=== PATIENT | female | born 1960 | race Caucasian/White ===

== ENCOUNTER 2022-11-17 10:48 | Emergency (ER) | payer BC ==
--- OUTSIDE RECORDS SUMMARY | 2022-11-17 10:51 | XMS REPORT | Clinical Summary ---
:1960 Author Organization [facility] MD [facility] Address [address] [place] [address] Care Team Providers Name Role Phone Tish Welsh MD Primary Care Provider Nasir Downs MD Unavailable Tish Welsh MD Unavailable Jasen Chaudhry MD Unavailable Unavailable Tangela Francois Unavailable Lon Roque MD Unavailable Helder Segura Unavailable Sid Ace MD Unavailable Jenni Shirley MD Unavailable Allergies Active Allergy Reactions Severity Noted Date Comments Sulfamethoxazole 07/19/2015 Medications Medication Sig Dispensed Refills Start Date End Date Status aspirin 81 mg chewable Chew 81 mg at 0 Active tablet bedtime. LAMOTRIGINE (LAMICTAL Take 400 mg by 0 Active ORAL) mouth at bedtime. polyethylene glycol Take 1 packet by 0 Active (MIRALAX) 17 g packet mouth as needed. MULTIVITAMIN ORAL Take 1 tablet by 0 Active mouth at bedtime. topiramate (TOPAMAX) Take 100 mg by 0 Active 100 mg tablet mouth 3 (three) times a day. simvastatin (ZOCOR) 20 Take 20 mg by 0 Active mg tablet mouth at bedtime. OLANZAPINE (ZYPREXA Take by mouth 0 Active ORAL) daily. FERROUS SULFATE ORAL Take 65 mg by 0 Active mouth daily. potassium gluconate 550 Take 550 mg by 0 Active mg (90 mg) tab mouth daily. cholecalciferol, Take 2,000 Units 0 Active vitamin D3, (VITAMIN by mouth daily. D3) 2,000 units tab tablet ascorbic acid, vitamin Take 100 mg by 0 Active C, (vitamin C) 100 mg mouth daily. tablet b complex vitamins Take 1 tablet by 0 Active tablet mouth daily. glucosam/msm/chond/bosw Take 1 tablet by 0 Active /hyalur mouth twice (HXER-RDH-BXVM-HANNAH-HYAL daily. ORAL) pregabalin (LYRICA) 25 Take 25 mg by 0 Active mg capsule mouth daily. tiZANidine (ZANAFLEX) 2 Take 2 mg by 0 Active MG capsule mouth 3 (three) times a day as needed for muscle spasms. Active Problems Problem Noted Date Non-small cell lung cancer 02/02/2016 Medical History Medical History Date Comments Cancer Chronic constipation Social History Tobacco Use Types Packs/Day Years Used Date Smoking Tobacco: Never Assessed Sex Assigned at Date Recorded Not on file Obstetrics History Last Filed Vital Signs Not on file Plan of Treatment Health Maintenance Due Date Last Done Comments COVID-19 Vaccination (#1) 1960 Results Not on fileafter 11/17/2021 Insurance Payer Benefit Plan / Subscriber ID Effective Dates Phone Addre ss Type Group [facility] PPO POS [id number] 2016-Present [address] [place] [address] Care Teams Distance Learning Program Coordinator Relationship Specialty Start Date End Date Tish Welsh MD PCP - General 08/03/[address] [place] [id number] Nasir Downs MD Physician 08/10/[address] [place] [id number] Tish Welsh MD Physician 08/10/[address] [place] [phone] Jasen Chaudhry MD Physician 08/10/15 Tangela Francois PA Physician Event Marketing Specialist 08/10/[address] [place] [phone] Lon Roque MD Physician 08/10/[address] [place] [phone] Helder Segura, PA Physician Event Marketing Specialist 08/10/15 [address] [place] [address] Sid Ace MD Physician 08/10/[address] [place] [id number] Jenni Shirley MD Physician 08/10/[address] [place] [id number]
--- OUTSIDE RECORDS SUMMARY | 2022-11-17 10:52 | XMS REPORT | Continuity of Care Document ---
:1960 Author Organization [facility] t Address [address] [place] [address] Care Team Providers Name Role Phone ESTELLA DENG Primary Care Physician Unavailable Mele Attending Clinician Unavailable Dae Gutiérrez S Attending Clinician [phone] Dae Gutiérrez Attending Clinician Unavailable ERI WILKINSON Attending Clinician Unavailable BROOK ALVA Attending Clinician Unavailable EMILIO SMITH Attending Clinician Unavailable ESTELA AGUILA Attending Clinician Unavailable MD SOBEIDA NIETO Attending Clinician Unavailable Mele Admitting Clinician Unavailable Dae Gutiérrez Admitting Clinician Unavailable UNDEFINED Admitting Clinician Unavailable SOBEIDA NIETO Admitting Clinician Unavailable MD SOBEIDA NIETO Admitting Clinician Unavailable Payers Payer Name Policy Type Policy Number Effective Date Expiration Date S [place] [id number] 2021 00:00:00 [place] Problems Condition Condition Condition Status Onset Resolution Last Treating Co mments Source Name Details Category Date Date Treatment Clinician Date Patient Patient Problem Active Sarah noncomplia Noncomplia 8 Or thope nce - nce - 00:00: dic general General 00 Sports Medicin e Loosening Loosening Problem Active Sonja arora of of 12-20 Orthope prosthesis Prosthesis 00:00: di c 00 Sports Medicin e Impaired Impaired Disease Active Metho di ambulation ambulation 11-11 00:00: Hospita 00 l Hypokalemi Hypokalemi Disease Active M ethodi a a 11-10 00:00: Hospita 00 l Fall Fall Disease Active Methodi 11-07 00:00: Hospita 00 l Closed Closed Disease Active Overview: Method i trimalleol trimalleol 11-[address] ar ar 00:00: g of this Hospita fracture fracture 00 note l of right of right might be ankle ankle different from the original. Added automatic ally from request for surgery [id number] History of History of Problem Active A cate operative Operative 12-03 Orth ope procedure Procedure 00:00: dic on on Sports shoulder Shoulder Medici n e Implantati Implantati Problem Active A cate on of on of 09-03 Orthope joint Joint 00:00: dic prosthesis Prosthesis 00 Sp orts Medicin e Sprain of Sprain of Problem Active 2017-06 Aza maite shoulder Shoulder 2-18 Orthop e rotator Rotator 00:00: dic cuff Cuff 00 Sports Medicin e Degenerati Degenerati Problem Active 2017-06 A cate ve joint ve Joint 2-05 Orthop e disease of Disease of 00:00: di c shoulder Shoulder 00 Sports region Region Medicin e 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 00:00: dic of bone of Bone 00 Sports Medicin e Strain of Strain of Problem Active Aza maite trapezius Trapezius 02-13 Orth ope muscle Muscle 00:00: dic 00 Sports Medicin e Bursitis Bursitis Problem Active Azale a of right of Right 02-13 Orthop e shoulder Shoulder 00:00: dic 00 Sports Medicin e Adhesive Adhesive Problem Active Azale a capsulitis Capsulitis 02-06 Or thope of of 00:00: dic shoulder Shoulder 00 Sports Medicin e Sprain of Sprain of Problem Active Sonja arora right Right 02-06 Orthope rotator Rotator 00:00: dic cuff Cuff 00 Sports capsule Capsule Medicin e Aftercare Aftercare Problem Active Sonja arora 4-19 Orthope 00:00: dic 00 Sports Medicin e Hypokalemi Hypokalemi Problem Active Jagdish saavedra 3-29 Orthope 00:00: dic 00 Sports Medicin e Thyroid Thyroid Problem Active Sarah nodule Nodule 3-02 Orthope 00:00: dic 00 Sports Medicin e Hyperchole Hyperchole Problem Active Jagdish esposito sterolemia sterolemia 3-02 Or thope 00:00: dic 00 Sports Medicin e Bipolar Bipolar Problem Active Sarah disorder Disorder 3-02 Orthop e 00:00: dic 00 Sports Medicin e Mixed Mixed Problem Active Sarah anxiety Anxiety 3-02 Orthope and and 00:00: dic depressive Depressive 00 Sp orts disorder Disorder Medici n e Nonunion Nonunion Problem Active Sonjabecca saavedra of of 3- Orthope fracture Fracture 00:00: dic 00 Sports Medicin e Osteopenia Osteopenia Problem Active Jagdish lopeza 3- Orthope 00:00: dic 00 Sports Medicin e Fracture Fracture Problem Active Sonjabecca saavedra of neck of of Neck of 3- Or thope humerus Humerus 00:00: dic 00 Sports Medicin e Postmenopa Postmenopa Problem Active Jagdish esposito usal state usal State 3- Or thope 00:00: dic 00 Sports Medicin e Pain of Pain of Problem Active Sarah right Right 3 Orthope shoulder Shoulder 00:00: dic joint Joint 00 Sports Medicin e Closed Closed Disease Active 2015-06 Methodi fracture fracture 06-23 st of of 00:00: Hospita proximal proximal 00 l end of end of right 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 Non-small Non-small Disease Active Uni vers cell lung cell lung 02-01 ity of cancer cancer 00:00: [place] 00 MD [facility] Osteoarthr Osteoarthr Problem Active Jagdish garciamaite itis of itis of 1-23 Orthope knee Knee 00:00: dic 00 Sports Medicin e Synovitis Synovitis Problem Active Aza maite and/or And/or 06-25 Orthope tenosynovi Tenosynovi 00:00: di c tis - tis - Sports ankle Ankle Medicin and/or And/or e foot Foot Foot pain Foot Pain Problem Active Aza maite 06-25 Orthope 00:00: dic 00 Sports Medicin e Anemia Anemia Problem Active Sarah 06-24 Orthope 00:00: dic 00 Sports Medicin e Allergies, Adverse Reactions, Alerts Allergy Allergy Status Severity Reaction(s) Onset Inactive Treating Comm ents Source Name Type Date Date Clinician Sulfa DA Active [place] [facility] (Sulfona 7-20 Clear mide 00:00: [facility] Antibiot 00 [facility] Sulfa DA Active MO HIV [facility] (Sulfona 7-20 Clear mide 00:00: [place] Antibiot 00 Regiona ics) [facility] Center Codeine Propensi Active Rash Methodi ty to [address] adverse 00:00: Hospita reaction 00 l s to drug Sulfa DA Active MO 2017-06 [facility] (Sulfona 2-05 [place] mide 00:00: Orthope Antibiot 00 dic ics) Hospita l Sulfa DA Active MO 2017-06 [facility] (Sulfona 2-05 Clear mide 00:00: [place] Antibiot 00 Regiona ics) [facility] Center Sulfa DA Active MO 2017-06 [facility] (Sulfona 1-30 [place] mide 00:00: Orthope Antibiot 00 dic ics) Hospita l Sulfa DA Active MO [facility] (Sulfona 9-13 [place] mide 00:00: Orthope Antibiot 00 dic ics) Hospita l Sulfa Propensi Active 2015-06 Methodi (Sulfona ty to 06-23 st mide adverse 00:00: Hospita Antibiot reaction 00 l ics) s to drug Sulfamet Propensi Active Univer s hoxazole ty to 2-16 ity of adverse 00:00: [place] reaction 00 MD [facility] SULFA Allergy Active Sarah (SULFONA to 06-24 Orthope MIDE substanc 00:00: dic ANTIBIOT e 00 Sports ICS) Medicin e Family History Family Member Diagnosis Comments Start Date Stop Date Source Natural father Cancer [facility] Natural mother Diabetes [facility] Natural mother Heart disease [facility] Social History Social Habit Start Date Stop Date Quantity Comments Source Gender identity [facility] Sexual orientation [facility] History of tobacco Current smoker [facility] use Hospital History of Social 2022-08-08 2022-08-[address] function 00:00:00 00:00:00 Hospital Alcohol intake 2020-04-26 2020-04-26 Current [facility] 00:00:00 00:00:00 non-drinker of Hospital alcohol (finding) Tobacco use and 2019-11-17 2019-11-17 Smokeless Catholic exposure 00:00:00 00:00:00 tobacco non-user Hospital Sex Assigned At [birth year] [facility] 00:[facility] 00[facility]00[facility]00 [facility] Smoking Status Start Date Stop Date Source Former Smoker Sarah Orthopedi c Sports Medicine Medications Ordered Filled Start Stop Current Ordering Indication Dosage Frequency Signature Comments Components Source Medication Medication Date Date Medication? Clinician (SIG) Name Name Zofran 4 mg Zofran 4 mg No Zofran 4 Sarah tablet Take tablet Take 7-20 mg tablet Orthope 1 tablet by 1 tablet by 00:00: Take 1 dic mouth every mouth every 00 tablet by Sports four hours four hours mouth Me dicin as needed as needed every four e NAUSEA NAUSEA hours as needed NAUSEA acetaminoph acetaminoph No acetaminop Sarah en 300 en 300 - hen 300 Orthope mg-codeine mg-codeine 00:00: mg-codeine dic 30 mg 30 mg 00 30 mg Sports tablet Take tablet Take tablet Medicin 1 tablet by 1 tablet by Take 1 e mouth every mouth every tablet by eight hours eight hours mouth as needed as needed every for pain for pain eight hours as needed for pain methocarbam methocarbam No methocarba Sarah ol 500 mg ol 500 mg 7-02 mol 500 mg Orthope tablet Take tablet Take 00:00: tablet dic 1 tablet by 1 tablet by 00 Take 1 Sports mouth every mouth every tablet by Medicin eight hours eight hours mouth e as needed as needed every for pain for pain eight hours as needed for pain nebivoloL 2019-06 Yes 5mg QD Take 5 mg Met hodi (BYSTOLIC) 1-[address] 5 MG tablet 07:53: daily. Hosp lisa 38 l amLODIPine- 2019- Yes 1{capsu QD Take 1 M ethodi benazepriL 1-24 le} capsule by st (LOTREL 07:53: mouth Hospita 5-10) 5-10 38 daily. l mg per capsule lurasidone 2019-06 Yes 20mg QD Take 20 mg M ethodi (LATUDA) 20 1-[address] mg tablet 07:53: every Hospita 38 evening. l lamoTRIgine 2019-06 Yes 400mg QD Take 400 M ethodi (LaMICtal 1-[address] XR) 300 mg 07:53: mouth Hospit a tablet 38 daily. l extended release 24hr topiramate 2019-06 Yes 100mg QD Take 100 Me thodi (TOPAMAX) 1-[address] 100 MG 07:53: mouth Hospita tablet 38 daily. l simvastatin 2019-06 Yes 20mg QD Take 20 mg Methodi (ZOCOR) 20 1-[address] mg tablet 07:53: nightly. Hosp lisa 38 l furosemide 2019-06 Yes 20mg QD Take 20 mg M ethodi (LASIX) 20 1-[address] mg tablet 07:53: daily. Hospit a 38 l chlordiazeP 2019-06 Yes 10mg Q.5D Take 10 mg Methodi OXIDE 1-[address] (LIBRIUM) 07:53: (two) Hospita 10 MG 38 times a l capsule day as needed for anxiety. tiZANidine 2019-06 Yes 4mg Q8H Take 4 mg Me thodi (ZANAFLEX) 1-[address] 4 MG tablet 07:53: every 8 Hos amy 38 (eight) l hours as needed for muscle spasms. DULoxetine 2019-06 Yes 120mg QD Take 120 Me thodi (CYMBALTA) 1-[address] 60 MG 07:53: mouth Hospita capsule 38 daily. l ferrous 2019-06 Yes 1{tbl} QD Take 1 Method i fumarate-vi 1-[address] tamin C 07:53: mouth Hospita (DAMIEN-SEQU 38 daily. l ELS, IRON-VIT C,) 200 mg (65 mg iron)-25 mg tablet extended release ER tablet cholecalcif 2019-06 Yes 2000U QD Take 2,000 Methodi montrell, 1-[address] vitamin D3, 07:53: mouth Hospi ta 50 mcg 38 daily. l (2,000 unit) capsule capsule aspirin 2019-06 Yes 81mg QD Take 81 mg Meth maria luisa (ECOTRIN) 1-[address] 81 MG 07:53: daily. Hospita enteric 38 l coated tablet B 2019-06 Yes 1{tbl} QD Take 1 Methodi complex-vit 1-[address] milligan 07:53: mouth Hospita C-folic 38 daily. l acid (FOLBEE PLUS 5 MG) 5 mg tablet per tablet omega-3 2019-06 Yes 1g Q.5D Take 1 g Method i acid ethyl 1-[address] esters 07:53: (two) Hospita (LOVAZA) 1 38 times a l gram day. capsule meloxicam meloxicam 2018-06 No meloxicam Sarah 7.5 mg 7.5 mg 1-05 7.5 mg Orthope tablet TAKE tablet TAKE 00:00: tablet dic 1 TABLET BY 1 TABLET BY 00 TAKE 1 Sports MOUTH EVERY MOUTH EVERY TABLET BY Medicin DAY DAY MOUTH e NEEDED NEEDED EVERY DAY NEEDED tiZANidine Yes 2mg Take 2 mg Un raegan (ZANAFLEX) 9-26 by mouth 3 ity of 2 MG 15:38: (three) [place] capsule 06 times a MD day as Anderso needed for n muscle Cancer spasms. [place] topiramate Yes 100mg Take 100 Un raegan (TOPAMAX) 9-26 mg by ity of 100 mg 15:19: mouth 3 [place] tablet 07 (three) MD times a Anderso day. n [facility] simvastatin Yes 20mg Take 20 mg Univers (ZOCOR) 20 9-26 by mouth ity o f mg tablet 15:19: at [place] [address] bedtime. MD [facility] OLANZAPINE Yes Take by [facility] ers (ZYPREXA 9-26 mouth ity of ORAL) 15:19: daily. MD [facility] FERROUS Yes 65mg Take 65 mg Univ ers SULFATE 9-26 by mouth ity of ORAL 15:19: daily. MD [facility] potassium Yes 550mg Take 550 Uni vers gluconate 9-26 mg by ity of 550 mg (90 15:19: mouth [place] mg) tab 07 daily. MD [facility] cholecalcif Yes 2000U Take 2,000 Univers montrell, 9-26 Units by ity of vitamin D3, 15:19: mouth [place] (VITAMIN 07 daily. D3) 2,000 Anderso units tab n tablet Cancer [place] ascorbic Yes 100mg Take 100 Univ ers acid, 9-26 mg by ity of vitamin C, 15:19: mouth [place] (vitamin C) 07 daily. 100 mg Anderso tablet n [facility] b complex Yes 1{tbl} Take 1 Univ ers vitamins 9-26 tablet by ity of tablet 15:19: mouth [place] 07 daily. MD [facility] glucosam/ms Yes 1{tbl} Take 1 Un raegan m/russell/deanna 9-26 tablet by ity of w/hyalur 15:19: mouth (GLUC-MSM-C 07 twice MD BRODY-HYA daily. Brigido o L ORAL) n [facility] aspirin 81 Yes 81mg Chew 81 mg U nivers mg chewable 9-26 at ity of tablet 15:19: bedtime. MD [facility] LAMOTRIGINE Yes 400mg Take 400 U nivers (LAMICTAL 9-26 mg by ity of ORAL) 15:19: mouth at [place] [address] bedtime. MD [facility] polyethylen Yes 1{packe Take 1 U nivers e glycol 9-26 t} packet by ity of (MIRALAX) 15:19: mouth [place] 17 g packet 07 needed. MD [facility] MULTIVITAMI Yes 1{tbl} Take 1 Un raegan N ORAL 9-26 tablet by ity of 15:19: mouth at [place] [address] bedtime. MD [facility] pregabalin Yes 25mg Take 25 mg U nivers (LYRICA) 25 9-26 by mouth ity of mg capsule 15:19: daily. MD [facility] prednisone prednisone No prednisone Sarah 10 mg 10 mg 4-18 10 mg Orthope tablet DAY tablet DAY 00:00: tablet DAY dic 1: TAKE 6 1: TAKE 6 00 1: TAKE 6 Sports PILLS, DAY PILLS, DAY PILLS, DAY Medicin 2: 5 PILLS, 2: 5 PILLS, 2: 5 e DAY 3: 4 DAY 3: 4 PILLS, DAY PILLS, DAY PILLS, DAY 3: 4 4: 2 PILLS, 4: 2 PILLS, PILLS, DAY DAY 5: 1 DAY 5: 1 4: 2 PILL DAILY PILL DAILY PILLS, DAY take at take at 5: 1 PILL same time same time DAILY take each day each day at same with food with food time each day with food aspirin 81 aspirin 81 No aspirin 81 Sarah mg mg 3-02 mg Orthope tablet,navjot tablet,navjot 00:00: tablet,del dic yed release yed release 00 ayed S ports 1 tablet a 1 tablet a release 1 day tablet a e day Lamictal Lamictal No Lamictal A zalea 200 mg 200 mg 3-02 200 mg Orthope tablet 1 tablet 1 00:00: tablet 1 d ic tablet a tablet a 00 tablet a Spo Medicin e Librium Librium No Librium Azal ea 25mg once a 25mg once a 3-02 25mg once Orthope day day 00:00: a day dic 00 Sports Medicin e multivitami multivitami No multivitam Sarah n chewable n chewable 3 in [place] hope tablet 1 tablet 1 00:00: chewable d ic tablet a tablet a 00 tablet 1 Spo tablet a in e pravastatin pravastatin No pravastati Sarah 80 mg 80 mg 3-02 n 80 mg Orthope tablet 1 tablet 1 00:00: tablet 1 d ic tablet a tablet a 00 tablet a Spo day Medicin e Super Super No Super Sarah B-Complex B-Complex 3-02 B-Complex Orthope tablet 1 tablet 1 00:00: tablet 1 d ic tablet a tablet a 00 tablet a Spo day Medicin e Topamax 100 Topamax 100 No Topamax Sarah mg tablet 1 mg tablet 1 3-02 100 mg Orthope tablet tablet 00:00: tablet 1 dic twice a day twice a day 00 tablet Sports twice a Medicin day e Zyprexa 5 Zyprexa 5 No Zyprexa 5 Sarah mg tablet 1 mg tablet 1 3-02 mg tablet Orthope tablet a tablet a 00:00: 1 tablet a dic day day 00 day Sports Medicin e Mobic 15 mg Mobic 15 mg No Mobic 15 Sarah tablet 1 PO tablet 1 PO 1-23 mg tablet Orthope QD WITH QD WITH 00:00: 1 PO QD dic FOOD FOOD 00 WITH FOOD Sports Medicin e amoxicillin amoxicillin No 4capsul amoxicilli Sarah 500 mg 500 mg e(s) n 500 mg Orthope capsule capsule capsule dic Take 4 Take 4 Take 4 Sports capsules by capsules by capsules Medicin oral route oral route by oral e as as route as directed. directed. directed. amoxicillin amoxicillin No amoxicilli Sarah 500 mg 500 mg n 500 mg Orthope tablet 4 tablet 4 tablet 4 dic pills 1 hr pills 1 hr pills 1 hr Sports prior to prior to prior to Med icin procedure, procedure, procedure, e then 1 po then 1 po then 1 po Q6H X 3 Q6H X 3 Q6H X 3 DOSES DOSES DOSES Immunizations Ordered Immunization Filled Immunization Date Status Commen ts Source Name Name [employer] COVID-19 MRNA 2021-03-24 Completed Meth odist VACCINATION 00:00:00 [facility] PFIZER COVID-19 MRNA 2020-09-28 Completed Meth odist VACCINATION 00:00:00 [facility] PFIZER COVID-19 MRNA 2020-09-07 Completed Meth odist VACCINATION 00:00:00 Hospital Vital Signs Vital Name Observation Time Observation Value Comments Source Height 2021-12-21 00:00:00 61 [in_i] Sarah O rthopedic Sports Medicine BMI (Body Mass 2021-12-21 00:00:00 26.5 kg/m2 Sarah Orthopedic Index) Sports Medicine Body Weight 2021-12-21 00:00:00 140 [lb_av] Sarah [facility]opedic Sports Medicine Procedures Procedure Date / Time Performed Performing Clinician Sourc e XR, shoulder, 2 or 2021-12-21 00:00:00 Sarah Or thopedic more view Sports Medicine Plan of Care Planned Activity Planned Date Details Comments Source Future Scheduled 2022-11-16 [facility] 15:40:37 malignant neoplasm of colon (procedure) [code = 145779712] Future Scheduled 2022-11-16 Screening for [facility] Test 15:40:37 malignant neoplasm of colon (procedure) [code = 785921413] Future Scheduled 2022-11-16 Screening for [facility] Test 15:40:37 malignant neoplasm of colon (procedure) [code = 299043889] Future Scheduled 2022-11-[address] [facility] Test 15:40:37 (procedure) [code = 720499348] Future Scheduled 2022-11-16 Screening for [facility] Test 15:40:37 malignant neoplasm of cervix (procedure) [code = 580748748] Future Scheduled 2022-11-16 BREAST CANCER [facility] Test 15:40:37 SCREENING [code = BREAST CANCER SCREENING] Future Scheduled 2022-11-16 Screening for [facility] Test 15:40:37 malignant neoplasm of colon (procedure) [code = 185368935] Future Scheduled 2022-11-16 Screening for [facility] Test 15:40:37 malignant neoplasm of colon (procedure) [code = 836685400] Future Scheduled 2022-11-16 SHINGLES VACCINES (1 Met [facility] Test 15:40:37 of 2) [code = SHINGLES VACCINES (1 of 2)] Future Scheduled 2022-11-16 COVID-19 VACCINE (4 - [facility] Test 15:40:37 Pfizer series) [code = COVID-19 VACCINE (4 - Pfizer series)] Future Scheduled 2022-11-16 INFLUENZA VACCINE Method [facility] Test 15:40:37 [code = INFLUENZA VACCINE] Future Scheduled 2022-09-11 COVID-19 Vaccination Uni [facility] Test 16:03:30 (#1) [code = COVID-19 MD And ersmalcolm Cancer Vaccination (#1)] Center Encounters Start End Encounter Admission Attending Care Care Encounter Source Date/Time Date/Time Type Type Clinicians Facility Department ID 2021-12-21 2021-12-21 Outpatient FOG_Brown_B AO AO [id number] Sarah 09:29:00 09:29:00 Crystal [id number] Orth ope dic Sports Medicin e 2021-12-21 2021-12-21 Dae Gavin AO [place] - Ortho 721 Sarah 00:00:00 00:00:00 MD Brock: Emily Parks - Orthope [address] FOG_Ofc dic [facility] [place], [place] [address] , Ph. [phone] 2021-12-21 2021-12-21 Outpatient Brock, AOSM AOSM [id number] 00:00:00 00:00:00 Dae Gavin [id number] [id number] 2021-09-21 Outpatient FOG_Brown_B AOSM AOSM [id number] Sarah 11:23:00 11:23:00 Crystal [id number] Orth ope dic Sports Medicin e 2021-03-24 2021-03-24 Outpatient [facility] [id number] [place] 00:00:00 00:00:[address] 2020-12-20 2020-12-22 Inpatient CJ GreeneTO OBSE [id number] [facility] 09:39:00 10:39:00 Dae 68 [place] Orthope dic Hospita l 2020-12-20 2020-12-20 Outpatient Brock HCACL LABO [id number] [facility] 18:25:00 18:25:00 Dae [id number] [facility] 2020-12-01 2020-12-01 Emergency JULIAN, [facility] [id number] [place] 00:00:00 00:00:00 ERI [address] 2020-09-28 2020-09-28 Outpatient ARTIE, [facility] [id number] [place] 00:00:00 00:00:00 BROOK 246 Ne thodi 2020-09-07 2020-09-07 Outpatient [facility] [id number] [place] 00:00:00 00:00:00 623 Method i 2020-04-26 2020-04-26 [facility] [id number] [place] 00:00:00 00:00:00 EMILIO 075 Method i 2020-04-26 2020-04-26 Outpatient [facility] [id number] [place] 00:00:00 00:00:00 EMILIO 549 Method i 2020-01-26 2020-01-26 [facility] [id number] [place] 00:00:00 00:00:00 EMILIO 549 Method i 2020-01-26 2020-01-26 [facility] [id number] [place] 00:00:00 00:00:00 EMILIO 585 Method i 2019-12-15 2019-12-15 [facility] [id number] [place] 00:00:00 00:00:00 EMILIO 376 Method i 2019-12-15 2019-12-15 [facility] [id number] [id number] [place] 00:00:00 00:00:00 EMILIO 162 Method i 2019-12-01 2019-12-01 [facility] 2099 [id number] [place] 00:00:00 00:00:00 EMILIO 095 Method i 2019-11-17 2019-11-17 Outpatient [facility] [id number] [id number] [place] 00:00:00 00:00:00 EMILIO 816 Method i 2019-11-08 2019-11-12 [id number] [place] 00:00:00 00:00:00 ESTELA Butterfield Met [facility] Results Test Description Test Time Test Comments Results Result Comments Source BASIC METABOLIC PANEL 2020-12-21 07:30:00 Test Item Value Reference Range Interpretation Comme nts SODIUM (test code = NA) 142 mmol/L 136-145 N POTASSIUM (test code = K) 4.6 mmol/L 3.5-5.1 N CHLORIDE (test code = CL) 107.0 mmol/L 98-107 N CARBON DIOXIDE (test code = 26.5 mmol/L 21-32 N CO2) GLUCOSE (test code = GLU) 104 mg/dL 70-110 N BLOOD UREA NITROGEN (test code 15 mg/dL 7-18 N = BUN) GLOMERULAR FILTRATION RATE 64.3 >60 U nit of measure: mL/min/1.73 (test code = GFR) [id number] Range:Healthy Adults >90 mL/m in/1.73 m2 For Chronic Kidney Disease: Stage II Mild Decreas e in GFR 60-90 Stage III Moder ate Decrease in GFR 30-59 St age IV Severe Decrease in GFR 15-29 Stage V Kidney Failure <15 CREATININE (test code = CREAT) 0.89 mg/dL 0.55-1.30 N CALCIUM (test code = CA) 8.8 mg/dL 8.2-10.1 N HGB [id number] 06:55:00 Test Item Value Reference Range Interpretation Comments HEMOGLOBIN (test code = HGB) 10.0 g/dL 12-16 L HEMATOCRIT (test code = HCT) 31.3 % 37-47 L - XR SHOULDER 1 V [id number] 16:04:00 [facility] 1960 Sex: F Patient Name: LINDA MALIK Unit No: [id number] EXAMS: CPT CODE: [id number] XR SHOULDER [place] [id number] AP portable right shoulder COMMENT: The patient is status post reverse prosthesis placement which is articulating normally. at 1604 Reported and signed by: Orlin Johns MD CC: Dae Gutiérrez MD Technologist: PARUL TERRAZAS. RT(R) Transcribed D/ (1604) BruceL [facility] NAME: LINDA MALIK [address] [facility] PHYS: Dae Baca : 1960 AGE: 60 SEX: F [place], [place] [address] LOC: Y.DSU PHONE #: [phone] EXAM DATE: 12/20/2020 STATUS: [facility] FA[place] #: [phone] RAD #: D/C DT PAGE 1 Signed Report Patient Name: LINDA MALIK Unit No: [id number] EXAMS: CPT CODE: [id number] XR SHOULDER 1 [place] RT [id number] (Continued) Orig Print D/T: S:12/20/2020 (1607) [facility] NAME: LINDA MALIK [address] [facility] PHYS: Dae Hernandez : 1960 AGE: 60 SEX: F [place], [place] [address] LOC: TARIK PHONE #: [phone] EXAM DATE: 12/20/2020 STATUS: [facility] #: [phone] RAD #: D/C DT PAGE 2 Signed ReportSARS coronavirus 2 RNA [Presence] in Respiratory specimen by SHABNAM with probe [id number] 19:51:28 Test Item Value Reference Range Interpretation Comments SARS coronavirus 2 RNA Not detected Not-Detected [Presence] in Respiratory specimen by SHABNAM with probe detection (test code = 01878-7) [facility]- XR FLUORO [id number] 14:54:00 Patient Name: LINDA MALIK Unit No: [id number] EXAMS: CPT CODE: [id number] XR FLUORO NDL 90900 Fluoroscopically guided right shoulder aspiration FINDINGS: After informed consent was obtained a 22-gauge needle is inserted into the right shoulder under fluoroscopic guidance using sterile technique. 2 cc of thin red fluid was aspirated. This is sent to the lab for analysis. The patient tolerated the procedure well. 14 seconds of fluoroscopy time was used on this exam. IMPRESSION: Fluoroscopically guided right shoulder aspiration. at 0533 Reported and signed by: Palmer Tamez M.D. CC: Dae Gutiérrez MD Technologist: GENE HERNANDEZ, RT(R) Transcribed D/ (1000) [email or web address] [facility] NAME: LINDA MALIK [address] [facility] PHYS: Dae Baca : 1960 AGE: 58 SEX: F [place], [place] [address] LOC: [place].RAD PHONE #: [phone] EXAM DATE: 09/24/2018 STATUS: DEP CLI FAX #: [phone] RAD #: D/C DT PAGE 1 Signed Report Patient Name: LINDA MALIK Unit No: [id number] EXAMS: CPT CODE: [id number] XR FLUORO NDL 44568 (Continued) Orig Print D/T: S: 09/25/2018 (1457) [facility] NAME: LINDA MALIK [address] [facility] PHYS: Dae Baca : 1960 AGE: 58 SEX: F [place], [place] [address] LOC: [place].RAD PHONE #: [phone] EXAM DATE: 09/24/2018 STATUS: DEP CLI FAX #: [phone] RAD #: D/C DT PAGE [address]OV[address] FLD CELL [id number] 13:24:00 Test Item Value Reference Range Interpretation Comments SYNOVIAL FLD BLOODY LT. YELLOW A COLOR (test code = COLSY) SYNOVIAL FLD BLOODY CLEAR A APPEARANCE (test code = APPSY) SYNOVIAL FLD 1 mL VOLUME (test code = VOLSY) SYNOVIAL FLD WBC 989.000 /MM3 0-200 H (test code = WBCSY) SYNOVIAL FLD RBC 389146.000 0-2 H NOTE: An au tomated (test code = /mm3 method is now b eing used RBCSY) to determinesyn ovial fluid WBC and R BC counts. The dif ferential willstill be pe rformed manually. SYNOVIAL FLD POLY 62 % 0-25 H (test code = POLYSY) SYNOVIAL FLD 38 % 0-78 N LYMPHOCYTE (test code = LYMPHSY) SPECIMEN COMMENT: ASPIRATED BY DR TAMEZ RT SHOULDERSYNOVIAL FLD CELL CT/DIFF 2018-09-24 13:14:00 Test Item Value Reference Range Interpretation Comments SYNOVIAL FLD BLOODY LT. YELLOW A COLOR (test code = COLSY) SYNOVIAL FLD BLOODY CLEAR A APPEARANCE (test code = APPSY) SYNOVIAL FLD 1 mL VOLUME (test code = VOLSY) SYNOVIAL FLD WBC 989.000 /MM3 0-200 H (test code = WBCSY) SYNOVIAL FLD RBC 478546.000 0-2 H NOTE: An au tomated (test code = /mm3 method is now b eing used RBCSY) to determinesyn ovial fluid WBC and R BC counts. The dif ferential willstill be pe rformed manually. SPECIMEN COMMENT: ASPIRATED BY DR TAMEZ RT SHOULDERSYNOVIAL FLD CELL CT/DIFF 2018-09-24 13:13:00 Test Item Value Reference Range Interpretation Comments SYNOVIAL FLD COLOR LT. YELLOW (test code = COLSY) SYNOVIAL FLD CLEAR APPEARANCE (test code = APPSY) SYNOVIAL FLD mL VOLUME (test code = VOLSY) SYNOVIAL FLD WBC 989.000 /MM3 0-200 H (test code = WBCSY) SYNOVIAL FLD RBC 845161.000 0-2 H NOTE: An au tomated (test code = /mm3 method is now b eing used RBCSY) to determinesyn ovial fluid WBC and R BC counts. The dif ferential willstill be pe rformed manually. SPECIMEN COMMENT: ASPIRATED BY DR TAMEZ RT SHOULDER Notes Date/Time Note Provider Source 2020-12-23 14:06:00-00:00 [id number] [place] [address] PATIENT NAME: LINDA MALIK ADMIT DATE: 12/20/20 ACCOUNT NO: [id number] ROOM NO: AGE: 60 REPORT TYPE: DISCHARGE SUMMARY REPORT SEX: F ADMITTING PHYSICIAN: ATTENDING PHYSICIAN:Dae Gutiérrez MD ADMISSION DATE: 12/20/2020 DISCHARGE DATE: 12/22/2020 ATTENDING PHYSICIAN: Dae Gutiérrez MD DISMISSING HOSPITALIST SERVICE: Orthopedic surge ry. REASON FOR HOSPITALIZATION: Right shoulder pain. HISTORY OF PRESENT ILLNESS: Please see the histo ry and physical. HOSPITAL COURSE: The patient on 12/20/2020 under went revision reverse total shoulder arthroplasty. Postoperatively, the david ent progressed well. Drain output steadily decreased. It was remove d on postoperative day #1. Neurologic, pain management, and internal medicine h ospitalist consultations were obtained to monitor for medical conditions for treatment postoperatively. She was transitioned from an IV to oral medication regim en. She had been receiving opioids as an outpatient fro [facility] physician in [facility] and was not able to contact that physician for outpatient medication prior t o potential discharge on the , subsequently discharged on the . FINAL DIAGNOSIS: Mechanical failure, right reverse total shoulder arthroplasty. ADDITIONAL DIAGNOSES: Anemia of acute blood loss , bipolar disorder, anxiety, depression, heart murmur, hypercholesterolemia, lung cancer, hypercalcemia, lactose intolerance, thyroid nodules. INSTRUCTIONS TO THE PATIENT ON DISCHARGE: Keep her sling in place at all times, keep her dressing clean and dry, take her medica tions as directed, follow her discharge instructions otherwise and follow up i n 10 to 14 days or earlier if necessary. She is otherwise to resume all prehos pitalization medications. Dictated By: Dae Gutiérrez MD WT: DS:SONAM/ROSALIA/CHIARA Conf#: [id number]/DID#: [id number] Authenticated by Dae Gutiérrez MD On 12/27/19 07:29:42 AM PATIENT NAME: LINDA MALIK ACCOUNT #: [id number] at 0730 PATIENT NAME: LINDA MALIK ACCOUNT #: [id number] 2020-12-22 07:07:00-00:00 [facility] Clinical Note REPORT#:[id number] REPORT STATUS: Signed DATE:12/22/20 TIME: 706 PATIENT: LINDA MALIK UNIT #: [id number] ROOM/BED: [facility] : 58 AGE: 60 SEX: F ATTEND: Jose Alfredo Gutiérrez MD ADM AUTHOR: Dae Gutiérrez * ALL edits or amendments must be made on the el ectronic/computer document * Clinical Note Note: HAD EPISODE OF SEVERE PAIN WHILE WALKING TO RESTROOM YESTERDAY; IS SUPPOSED TO SPEAK WITH OUTPATIENT PHYISICAN WHO PRESCRIBED O PIOIDS PRIOR TO PROCEDURE AF VSS R UE: DSG C/D/I; +POST DELT/EPL/FDP-IF/FDI S/P REVISION RSA APPRECIATE CONSULTANTS' ASSISTANCE PT ABLE DVT PROPH: AMBULATE, MECHANICAL D/C HOME FINAL DX: SAME POSTOP DX SIGNIFICANT FINDINGS: ABOVE TREATMENT RENDERED: ABOVE CONDITION: STABLE DISPOSITION: HOME F/U 10-14 DAYS ADDITIONAL INSTRUCTIONS PER D/C SHEET at 0709 RPT #:[id number] END OF REPORT 2020-12-21 15:15:00-00:00 [facility] Clinical Note REPORT#:[id number] REPORT STATUS: Signed DATE:12/21/20 TIME: 1515 PATIENT: LINDA MALIK UNIT #: [id number] ROOM/BED: [address] : 56 AGE: 60 SEX: F ATTEND: Jose Alfredo Gutiérrez MD ADM AUTHOR: Mello Stanford MD * ALL edits or amendments must be made on the el ectronic/computer document * Clinical Note Note: Consult Note Dictated [id number] Electronically Signed by Mello Stanford MD n 12/21/20 at 1518 RPT #:[id number] END OF REPORT 2020-12-21 14:50:00-00:00 [id number] [place] [address] PATIENT NAME: ILNDA MALIK ADMIT DATE: 12/20/20 ACCOUNT NO: [id number] ROOM NO: AGE: 60 REPORT TYPE: CONSULTATION REPORT SEX: F ADMITTING PHYSICIAN: ATTENDING PHYSICIAN:Dae Gutiérrez MD CONSULTATION DATE: 12/21/2020 CONSULTING PHYSICIAN: Mello Stanford MD NEUROLOGY CONSULTATION HISTORY OF PRESENT ILLNESS: The patient is a 60- year-old woman, , right handed, right footed. The patient was admitted to [facility] yesterday, December 20. The patient did come out of the OR late last evening and I am seeing her today the following day, December 21. The patient did sustain a right humerus fracture in 2017. The patient has had several operations to the [facility] arm. The patient did have initial open reduction and internal fixation. On 09/18/2016, Dr. Gutiérrez did do right humerus no nunion repair and hardware removal. On 02/13/2017, the patient did undergo a right s houlder arthroscopy, capsular release with manipulation, rotator cuff debridem ent and subacromial decompression. The patient states that she was in above ground pool at her daughter's house. She was moving her arm. She did feel an increase of pain in the right shoulder. The hardware did fracture. The patient states that she has had pain in the right shoulder. It has gone into the arm across the shoulder to the neck. Sh e has felt cramping and spasm in neck, shoulder, and arm. The patient has had some weakness in the arm and some numbness in the fingers. No incontinence to urine or stool. PAST MEDICAL HISTORY: 1. History of lung carcinoma diagnosed in November 02 followed by radiation therapy at [facility]. 2. Hypothyroidism. PATIENT NAME: LINDA MALIK ACCOUNT #: [id number] 3. Hypertension. 4. Hypercholesterolemia. 5. Hypertriglyceridemia. 6. History of bipolar depression. PAST SURGICAL HISTORY: 1. Right shoulder humerus fracture open reductio n and internal fixation in 2016. 2. On 09/18/2016, right humerus nonunion repair and hardware removal. 3. On 02/13/2017, right shoulder arthroscopy, ca psular release with manipulation, rotator cuff debridement and subac romial decompression. 4. Reverse right shoulder arthroplasty on 2018. REVIEW OF SYSTEMS: EYES: No blurred vision. ENT: Hypothyroidism. PULMONARY: The patient has a history of lung can cer diagnosed in November 2014 followed by radiation therapy. CARDIOVASCULAR: The patient has history of hyper tension. GASTROINTESTINAL: No nausea or vomiting. GENITOURINARY: No incontinence. MUSCULOSKELETAL: As above. NEUROLOGICAL: As above. PSYCHIATRIC: The patient does have a history of bipolar depression. The patient states in the last month, pain has m adina her energy level and appetite reduced. Pain does interfere with her g etting sleep and staying asleep. Pain has made her nervous, restless, dep ressed and forgetful. The patient did have surgery last evenin . The patient was diagnosed as having mechanical failure of reverse right total should er arthroplasty. The patient did undergo right shoulder a rthrotomy, frozen section, 2 component resection arthroplasty and revision of reverse t otal shoulder arthroplasty. Postoperatively, the patient was given brachiopl exus interscalene block with ropivacaine and clonidine. The block did wore of f at about 3:00 a.m. The patient is on a pain pum p with hydromorphone. It has been discontinued this a.m. The patient has been given hydrocodone 10/325 on e or two tablets q. 4 hours p.r.n. for pain. PHYSICAL EXAMINATION: EYES: Pupils are equal, 3 mm in size. Extraocula r movements and visual fournier intact. NEUROLOGIC: Mental Status: The patient is alert. She is oriented to place and year. The patient could not subtract 7 from 100. The patient could reverse presidents x2 to Neymartalib Norton. PATIENT NAME: LINDA MALIK ACCOUNT #: [id number] Short-term memory reduced. After 30 seconds, she could only recall 2 out of 3 objects. The patient states that her pain in her right shoulder now is an 8 on a scale of 0 to 10. Cranial Nerves: II, III, IV, as above; V inta ct to light touch; VII, no facial asymmetry; VIII through XII intact. Motor: Good strength in the right fingers of the right hand. Good strength in the left arm and both legs. Sensory: Intact to light touch. Reflexes: +2 left biceps; +1 left wrist, not moraima edwin right biceps; not tested right wrist, +2 both knees and 0 both ankles. CLINICAL DIAGNOSES: 1. Right humerus fracture occurring approximate2016. 2. Open reduction and internal fixation of same. 3. Right humerus nonunion repair, hardware remov al performed by Dr. Gutiérrez on 09/18/2016 4. On 02/13/2017, right shoulder arthroscopy, ca psular release with manipulation, rotator cuff debridement, and suba cromial decompression. 5. On 05/20/2018, right reverse total shoulder a rthroplasty. 6. Failure of hardware. 7. Right shoulder arthrotomy, frozen section. 8. Component resection arthroplasty. 9. Revision reverse right total shoulder arthrop lasty performed yesterday, 12/20/2020. 10. Musculoskeletal spasm of cervical spine, rig ht shoulder, right arm. 11. Hypertension. 12. Hypothyroidism. 13. History of lung cancer, treated with radiati on therapy, in November 2014. 14. Hypercholesterolemia. 15. Hypertriglyceridemia. 16. Bipolar depression. 17. Metabolic encephalopathy. TREATMENT: The patient had told nurses she does not have a pain management physician. I did get on the [facility]. The patient has received from Mellissa Martines MD, in [facility] on 12/02/2020 Norc o 10/325 one tablet t.i.d., dispensed 90 pills. The patient also did receive from Dr. Martines on November 15 oxycodone 10 mg 1 tablet q.i.d., dispensed 120 pills. The patient has also received in [facility] Room tramadol 50 mg 20 tablets, prescription written on December 01 by Luther Goldberg. The patient has been told she will be given a pr escription for Flexeril 10 mg one-half tablet t.i.d., dispensing 15 pills with one refill. The patient PATIENT NAME: LINDA MALIK ACCOUNT #: [id number] instructed to take as scheduled for 10 days, the n p.r.n. muscle spasm thereafter. The patient does have the Ch lordiazepoxide (Librium) 5 mg that she was taking 4 tablets a day in the morning at home p.r.n. I did instruct the patient to take 5 mg q. 6 zandra rs for a week, then take her Librium p.r.n. as she has been doing previously. The patient will not be given prescription of na rcotics from [facility] and she will have t o go to her treating doctor, Mellissa Martines MD, for any additional pain medicines. The patient's medications prior to this admissio n include the followin. Chlordiazepoxide (Librium) 20 mg daily p.r.n. 2. Duloxetine 120 mg q.a.m. 3. Phoenix 10/325 q. 6 hours. 4. Lamotrigine (Lamictal) 150 mg at bedtime. 5. Lurasidone (Latuda) 40 mg at bedtime for depr ession. 6. Topiramate 200 mg q.a.m. 7. Glucosamine chondroitin 6 tablets daily. 8. Multiple vitamins daily. 9. Flonase nasal spray p.r.n. 10. Potassium supplements. 11. Turmeric 1 tablet daily. 12. Cyclobenzaprine (Flexeril) 10 mg one-half ta blet t.i.d. 13. Iron supplements. 14. Nebivolol (Bystolic) 5 mg daily. 15. Aspirin 81 mg daily. The patient is instructed to call Dr. Pearl's office to have followup visit in approximately 2 weeks. Dictated By: Mello Stanford MD WT: CON:Y.HIM/MOLST/NTS Conf#: [id number]#: [id number] cc: Dae Gutiérrez MD Authenticated by Mello Stanford MD On 01/20 02:21:23 PM at 1421 PATIENT NAME: LINDA MALIK ACCOUNT #: [id number] 2020-12-21 07:53:00-00:00 [facility] Clinical Note REPORT#:[id number] REPORT STATUS: Signed DATE:12/21/20 TIME: 0753 PATIENT: ILNDA MALIK UNIT #: [id number] ROOM/BED: [address] : 58 AGE: 60 SEX: F ATTEND: Jose Alfredo Gutiérrez MD ADM AUTHOR: Dae Gutiérrez MD * ALL edits or amendments must be made on the el ectronic/computer document * Clinical Note Note: PAIN CONTROLLED AF VSS HVAC 10-20 R UE: DSG C/D/I; +POST DELT/EPL/FDP-IF/FDI; LIGH T TOUCH INTACT AX/R/U/M XR: SATISFACTORY ALIGNMENT S/P R RSA REVISION APPRECIATE CONSULTANTS' ASSISTANCE REMOVE DRAIN PT ABLE DVT PROPH D/C HOME FINAL DX: SAME POSTOP DX SIGNIFICANT FINDINGS: ABOVE TREATMENT RENDERED: ABOVE CONDITION: STABLE DISPOSITION: HOME F/U 10-14 DAYS ADDITIONAL INSTRUCTIONS PER D/C SHEET at 0757 RPT #:[id number] END OF REPORT 2020-12-21 07:28:00-00:00 [facility] Pain Management Progress Note REPORT#:[id number] REPORT STATUS: Signed DATE:12/21/20 TIME: 727 PATIENT: LINDA MALIK UNIT #: [id number] ROOM/BED: [address] : 58 AGE: 60 SEX: F ATTEND: Jose Alfredo Gutiérrez MD ADM AUTHOR: Katya Olivia * ALL edits or amendments must be made on the [employer]/computer document * Subjective Chief Complaint: R SHOULDER PAIN S/P ARTHROTOMY, HUMERAL OSTEOTOM Y, I D Comments: Last Documented: Result Date Time Pulse Ox 100 12/22 719 B/P 115/65 12/21 07 B/P Mean 81.9 12/21 07 O2 Delivery Nasal cannula 12/22 719 Temp 36.2 12/21 07 Pulse 69 12/21 0720 Resp 15 12/21 07 FiO2 32 12/21 0246 O2 Flow Rate 3 12/21 0246 History: PMH: COPD, BIPOLAR, EX-SMOKER POD: 1 MD who placed block: DR. JACKSON Type of block: IS S/S Time block wore off: 1530 Activity status: PT SITTING UP IN BED WATCHING TV. AT BEDSIDE. Pain: STATES HAS INCREASED PAIN Physical Exam: VAS: 9 LOS: 1 Resp Quality: 1 Side Effects: NONE PT APPEARS TO HAVE MODERATE AT THIS TIME. MOTOR MVMT AND STRENGTH INTACT TO RUE. Plan: BLOCK FOLLOW UP PAIN MGMT CARE TRANSFERRED TO DR. STANFORD at 0731 RPT #:[id number] END OF REPORT 2020-12-20 22:43:00-00:00 [facility] Clinical Note REPORT#:[id number] REPORT STATUS: Signed DATE:12/20/20 TIME: 2242 PATIENT: LINDA MALIK UNIT #: [id number] ROOM/BED: YO22-A : 56 AGE: 60 SEX: F ATTEND: Jose Alfredo Gutiérrez MD ADM AUTHOR: Cristela Harding MD * ALL edits or amendments must be made on the el [employer]/computer document * Clinical Note Note: Internal Medicine Consult Cristela Harding MD (office: [phone]) Patient Name: Linda Malik Date of Service: 12/20/2020 Internal Medicine Consult at request of : Dr. Jake Gutiérrez Chief Complaint: shoulder pain HPI: 60 yo F is now s/p Right shoulder arthrotom y, revision two component right reverse total shoulder arthroplasty (TSA) by Dr. Gutiérrez. Ms. Malik undergone a reverse right total shoulder arthroplasty in 2018, noted worsening pain. Clinical and radiographic evaluation is co nsistent with mechanical failure for reverse total shoulder arthroplasty. She relates years of progressive shoulder pain (recently severe), wor se with activity, and with restricted motion at times in quality. S he has failed conservative management. Comorbidities: see below. PmHx: COPD, history of non-small cell cancer of right lung in 2014 s/p radiation, bipolar disorder, osteoarthritis , HT N, prior covid PNA ALLERGY: Allergies Allergy Severity Reaction Updated Coded Sulfa (Sulfonamide Intermediate HIVES 12/20/20 Antibiotics) Home Medications: Home Medications: ASPIRIN 81 MG PO DAILY CYCLOBENZAPRINE (FLEXERIL) 10 MG PO TID MULTIVITAMIN (MULTIPLE VITAMIN) 1 TAB PO DAILY FLUTICASONE PROPIONATE/SALMETEROL (ADVAIR DISKUS 100/50 MCG/ACT) 1 PUFF INH BEDTIME TOPIRAMATE (TOPAMAX) 200 MG PO DAILY DULoxetine DR (CYMBALTA) 120 MG PO DAILY NEBIVOLOL (BYSTOLIC) 5 MG PO DAILY LURASIDONE (LATUDA) 40 MG PO BEDTIME lamoTRIgine (LaMICtal) 150 MG PO BEDTIME chlordiazePOXIDE (LIBRIUM) 20 MG PO DAILY HYDROcodone/APAP (NORCO 10/325) 1 TAB PO Q6H PRN PRN PAIN POTASSIUM GLUCONATE (POTASSIUM) (Unknown Dose) P O DAILY IRON 18 MG PO DAILY [TURMERIC] 1 TAB PO DAILY GLUCOSAMINE/D3/BOSWELLIA ROSALIO (OSTEO BI-FLEX) 6 TAB PO DAILY SgHx: Right shoulder scope in 04/2016, right jasmin ulder scope in 09/2016, right shoulder scar removal in 02/2017 SHx: Tob: 2 ppd x 30 yr. Quit in 2014 Alcohol: none Drugs: none Lives: with spouse FHx: .No significant hx of DVT/PE. ROS: [X] all systems reviewed and negative excep t- [ ] Con: . Fever/ Wt loss [ ] CV: cpain/edema. [ ] Pul: . cough/SOB [ ] GI: hematemesis/diarrhe a [ ] : . dysuria or hematuria [X] MS: back pain [ ] Neuro: . headache/loss sensation [ ] Heme: . adenopathy/Ecchymosis Vitals: Gen: Alert, in mild discomfort, nl nutrition. EYE: Nl lids conjunctiva. ENT: Nl ears Nose, nl lips,. Neck: Supple, nl thyroid, No masses. CV: Regular Rate Rhythm, no heave or significant murmur. Edema- none Feet toes normal temperature. RESP: Clear to Auscultation, normal Respiratory effort. ABD: Soft, NonDistended,. LYM: No significant cervical Lymphadenopathy. MS: neuro vascular and motor intact below the moore rgical site, incisional dressing dry and intact NEURO: Nonfocal, grossly normal sensation of LE, +Ankle DF/PF PSY: Normal insight, Normal mood, oriented, . Preop Labs (12/16/2020 outside records): CBC:. Hgb 12.3, Plt 263, CHEM: Na 136, K 3.8, Cr 0.71 (eGFR 91%) (medium to high risk of complications or morbidi ty) (major surgery) (IV sedative, meds) Assessment Plan 1. Anemia of Acute Blood Loss- will recheck david rrow. 2. Acute post op pain control- WOOL MERCHANT per anesthesi a or pain management. 3. Physical Therapy, Wound Care, Drain R emoval, post OP steroids, and Starting of DVT Rx per Orthopedics 4. Hypertension- Continue home BP medication plu s a PRN 5. Hx of ling CA radiation, but lungs are clear, c/o a little SOB but exam benign Thank You for the consult Cristela Harding M.D. at [address] [facility] #:[id number] END OF REPORT 2020-12-20 15:56:00-00:00 [id number] [facility] [address] [place] [address] PATIENT NAME: LINDA MALIK ADMIT DATE: 12/20/20 ACCOUNT NO: [id number] ROOM NO: Y.O22 AGE: 60 REPORT TYPE: OPERATIVE REPORT SEX: F ADMITTING PHYSICIAN: ATTENDING PHYSICIAN:Dae Gutiérrez MD OPERATION DATE: 12/20/2020 PREOPERATIVE DIAGNOSIS: Mechanical failure rever se right total shoulder arthroplasty. POSTOPERATIVE DIAGNOSIS: Mechanical failure reve rse right total shoulder arthroplasty. PROCEDURES PERFORMED: 1. Right shoulder arthrotomy with frozen section . 2. Right shoulder two-component revision reverse total shoulder arthroplasty. SURGEON: Dae Gutiérrez MD SAND MOLDER: MD Dr. Xander Avendaño, surgical consultant, was medically necessary for the procedure. His assistance allowed me to operate with two cho nds freely. He assisted with arm positioning, suture management, and implant placement. For this, he is medically necessary. ANESTHESIA: General with a block. DESCRIPTION OF FINDINGS AND INDICATIONS FOR PROC EDURE: The patient is a 60-year-old female, who had undergone a reverse right total shoulder arthroplasty in 2018, noted worsening pain. Clin ical and radiographic evaluation is consistent with mechanical failure for reverse total shoulder arthroplasty. She was counse led as to the risks and benefits of the recommended treatment of operative intervention including bu t not limited to bleeding, infection, neurovascular inj ury, persistent pain, need for additional procedure, loss of function, recurrence of her condition, inability to return to activity, need for redo revision arthroplasty as well as a nesthetic risks including but not limited to change in blood pressure, deep ve nous thrombosis, pulmonary embolism, heart attack, stroke, or . The patient voiced understanding and wished to proceed. PROCEDURE IN DETAIL: After obtaining informed co nsent, the right shoulder was marked by me in the preoperative holding area. T he patient underwent a preoperative block. She was brought to the opera ting room suite where satisfactory anesthesia was established by the anesthesia service. The patient was [facility] n on operating room table and all bony prominences were well padded. No tourniquet was applied. The right upper PATIENT NAME: LINDA MALIK ACCOUNT #: [id number] extremity was prepped and draped in sterile fash ion and sterile drapes were applied. Time-out was called prior to co mmencing of verifying the correct site and correct side. Preoperative antibiotics were held. At this point, skin incision was made centered o maynor the prior skin incision. Dissection carried out through skin and subcutaneous tissue. Bovie caut cheli was used to maintain hemostasis. Deltopectoral interval was opened th ere. The implant juncture was visualized. There was no gross purulence. The pr oximal metaphysis was able to be removed without difficult y. Progressive exposure of the proximal humerus was performed in sequential fashion subperiosteally using electrocautery. At this point, attention was turned to the humeral diaph ysis and a 1-mm jose armando tip drill bit was utilized to in itially scored the central screw. This was noted to subsequently be loose and was subsequently eleva edwin and removed. The [employer] Tornier Love stem insertion handle was then brought into place and the stem was able to be removed without diff iculty. Additionally, tissue which was suspicious for infection, was sent for f macy section as was initial tissue at the outset. Reaming of the humeral canal was per formed using both gold tip reamers in 1 mm increments and in order to obtain satisfactory canal fill, the distal pedestal from the previous arthroplasty w as also able to be dilated. Attention at this point to the glenosphere, cent er screw was loosened. Extraction apparatus was then utilized. The scre ws in the baseplate were all noted to be intact with no evidence of loosening . Peripheral reamer was then placed around this for likel y upsizing. Provided frozen sections were negative. Pathology demonstrated less than 5 white blood cells per high-powered field. The tissue was also sent for culture. At this po int, attention was turned to the revision arthroplasty. The [facility] To lili Ethridge Revive stem trials were brought into place. Reaming was perf ormed to appropriate level. Proximal metaphysis being a size 13 and was placed to an appropriate level with complete neuromuscular blockade and placement of the tray and a +6 poly after placement of a 42 x 29 glenosphere, which was th en malleted in place and with the center screw being tight ened satisfactorily, the components were able to be reduced with no evidence of shuck or impingement at the extremes of motion. After frozen section was verified, the distal fi nal stem was assembled on the back table using the appropriate torque limiter, Revive 13 x 140 mm stem was assembled, placed at 30 degrees retroversion, an d was malleted into place. Trialing was again performed with a +0 c entered tray. The +9 poly was not able to be reduced, elected to proceed with a +0 cent ered tray, which was then malleted on the Cotto taper, followed by placeme nt of a 42+6 poly. With complete neuromuscular block adina, this was able to be reduced with no evidence of a shuck and it was stable at the extremes of mot ion. Wound was then copiously irrigated. Drain was brought out proxima lly and sewn into place. Wound closure then commenced in layered fashion. Deep closure performed using 0 Vicryl, superficial closed using 2-0 Vicryl, and skin was closed with nichole. Sterile dressings of Xeroform and 4 x 4s applied, secure d with ABD and tape. She was placed in UltraSling. She tolerated the procedur e well, was extubated, [facility], and onto the recovery [facility] in satisfactory condition. ESTIMATED BLOOD LOSS: 150 mL INTRAVENOUS FLUIDS: 1.5 liters of crystalloid, 5 00 mL of albumin. COMPLICATIONS: There were no known intra operative complications. Cultures will be followed. Dictated By: Dae Gutiérrez MD PATIENT NAME: LINDA MALIK ACCOUNT #: [id number] WT: OP:YHAYLIE/ROSALIA/CHIARA Conf#: [id number]/DID#: [id number] Authenticated by Dae Gutiérrez MD On 12/22/19 07:12:06 AM at 0712 PATIENT NAME: LINDA MALIK ACCOUNT #: [id number] 2020-12-20 14:55:00-00:00 [facility] ([facility] Brief Op Note REPORT#:[id number] REPORT STATUS: Signed DATE:12/20/20 TIME: 1455 PATIENT: LINDA MALIK UNIT #: [id number] ROOM/BED: : 58 AGE: 60 SEX: F ATTEND: Jose Alfredo Gutiérrez MD ADM AUTHOR: Dae Gutiérrez * ALL edits or amendments must be made on the [employer]/computer document * Op/Inv Proc Note - Brief Pre-procedure diagnosis: MECHANICAL LOOSENING REVERSE RIGHT TOTAL SHOULDE R ARTHROPLASTY Post-procedure diagnosis: same as pre procedure dx Procedures performed: RIGHT SHOULDER ARTHROTOMY, FROZEN SECTION REVISION TWO COMPONENT RIGHT REVERSE TOTAL SHOUL MONICA ARTHROPLASTY Primary Surgeon: DAE GUTIÉRREZ MD Paper Finisher(s): TASHI MUÑOZ MD Anesthesia: combined general/regional Findings: MECHANICAL LOOSENING LESS THAN 5WBC/HPF METALLOSIS SEE DICTATION Complications: none Estimated blood loss in ml's: 150ML Specimens removed/altered: TISSUE, IMPLANT Drain(s): HVAC X 1 Fluids: 500ML ALBUMIN 1.5L CRYSTALLOID at 1457 [facility] #:[id number] END OF REPORT 2018-05-22 16:41:00-00:00 [id number] [place] [address] PATIENT NAME: LINDA MALIK ADMIT DATE: 07/21/17 ACCOUNT NO: [id number] ROOM NO: Y.[facility] AGE: 58 REPORT TYPE: PROGRESS NOTE SEX: F ADMITTING PHYSICIAN:Dae Gutiérrez MD ATTENDING PHYSICIAN:Dae Gutiérrez MD DATE: 05/22/2018 SUBJECTIVE: The patient is alert. The patient is seen in her room. , Sunday, is present. The patient states that she did sleep better las t night. Pain is less today. The patient does have some c ramping and spasm in the right shoulder. Also, some pain from the shoulder into the arm, also across to the neck area. The patient states that her pain today is 6 on a scale of 0 to 10. No complaints of nausea this afternoon. Some min imal nausea earlier this a.m. Motor exam does show good strength in the right handgrip. The patient does have good strength in the left arm, both legs. Muscle tone +2 in the left arm. No rigidity. No cogwheeling is noted. Medications reviewed. The patient will be contin ued on Flexeril 10 mg q. 8 hours. I did discuss with the patient that she s hould take it scheduled q. 8 hours for the first 2 weeks, then it can be p.r. n. q. 8 hours thereafter for muscle spasm. The patient does have her ow n prescription of Flexeril, cyclobenzaprine at home. I did increase up olanzapine from 5 mg at bedtime to 5 mg q. 6 hours to serve as a narcotic enhancer. Pain is less today. I did instruct the patient t o take the olanzapine 5 mg q. 6 hours x2 weeks, then to return back to her previous baseline of 5 mg at bedtime for her bipolar depression. The patient is also on MS Contin 15 mg q . 12 hours, which is her baseline. She has those medicines at home. Nurses have been giving her Phoenix 5 mg q. 4 hour s p.r.n. I told the patient that I will give her Phoenix 5 mg 1 tablet b.i.d. p.r.n. for breakthrough pain, dispensed 14 tablets. That will give her enough time to get into her pain management physician next week aft moe Babb. PATIENT NAME: LINDA MALIK ACCOUNT #: [id number] I also did discuss with the patient and her husb and that she needs to get off the MS Contin as she has been on it for over a y ear preoperatively for nonsurgical pain and this is the reason why she is having difficulty with pain symptoms last night that she has built up a tolerance to the strongest narcotics and nothing was working last night. The patient's motivation to do so appears to be limited. Other medicines do include topiramate 10 0 mg t.i.d., gabapentin 300 mg b.i.d., and lamotrigine 200 mg at bedtime. The patient also instructed to call Dr. Gutiérrez's office to schedule a followup visit in approximately 2 weeks. Dictated By: Mello Stanford MD WT: PN:SONAM/KAYLEE/CHIARA Conf#: [id number]/DID#: [id number] cc: Dae Gutiérrez MD Authenticated by Mello Stanford MD On 07/07 06:44:33 PM at 1844 PATIENT NAME: LINDA MALIK ACCOUNT #: [id number] 2018-05-21 20:11:00-00:00 [id number] [place] [address] PATIENT NAME: LINDA MALIK ADMIT DATE: 07/21/17 ACCOUNT NO: [id number] ROOM NO: Y.315 AGE: 58 REPORT TYPE: CONSULTATION REPORT SEX: F ADMITTING PHYSICIAN:Dae Gutiérrez MD ATTENDING PHYSICIAN:Dae Gutiérrez MD CONSULTATION DATE: 05/21/2018 CONSULTING PHYSICIAN: Mello Stanford MD HISTORY OF PRESENT ILLNESS: The patient is a 58- year-old woman, , right handed, right footed. The patient is being seen at the request of Dr. Gutiérrez for neurological evaluation of pain sympto ms and medication management. The patient was admitted to [facility] yesterday, 05/20/2018. She did come out of the OR late last night. The patient did sustain a fracture to her right humerus in April 2016. The patient did have initial open reduction and inte rnal fixation of the right humerus fracture, 04/06/2016. 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 The patient did undergo a right humerus nonunion repair, hardware removal. Surgery performed by Dr. Gutiérrez on 09/18/2016. The patient did have additional surgery on 02/13. The patient did have a right shoulder arthroscopy, capsular release wit h manipulation, rotator cuff debridement, and subacromial decompression. The patient states that on 06/22/2017, the patient had the onset of severe right shoulder pain going into the right arm, also int o the base of neck. Some weakness in the arm. Some cramping and spasm. No numbness or tingling. The patient has not had any headaches, blurred v ision, diplopia. PAST MEDICAL HISTORY: 1. Chronic obstructive pulmonary disease. 2. Lung cancer diagnosed in 2014. 3. Radiation therapy - November 2014. 4. Anemia. 5. Thyroid nodules. 6. Bipolar depression, manic phase. 7. Hypercholesterolemia. 8. Hypertriglyceridemia. PAST SURGICAL HISTORY: 1. Open reduction and internal fixation of right humerus fracture - April PATIENT NAME: LINDA MALIK ACCOUNT #: [id number] 2015. 2. Right humerus nonunion repair and hardware re moval - 09/18/2016. 3. Right shoulder arthroscopy, capsular release, rotator cuff debridement, subacromial decompression - 02/13/2017. REVIEW OF SYSTEMS: EYES: The patient has not had any blurred vision . ENT: The patient has been diagnosed as having th yroid nodules. PULMONARY: The patient has history of lung cance r diagnosed in 2014 with radiation therapy, November 2014. CARDIAC: No chest pain or arrhythmias. GASTROINTESTINAL: No nausea or vomiting. GENITOURINARY: No incontinence. MUSCULOSKELETAL: As above. NEUROLOGIC: The patient has had pain in the righ t shoulder, cramping, spasm, weakness. PSYCHIATRIC: Energy level has been less. Appetit e is unchanged. The pain does interfere with her getting sleep and staying asl eep. The patient has been nervous, restless, depressed. The patient has been diagnos ed as having bipolar depression of the manic phase. She has also been depressed. The patient also does have a diagnosis of chronic obstructive pulmonary disease. MEDICATIONS: Prior to the current admission incl ude; 1. Multiple vitamins. 2. Cyclobenzaprine or Flexeril 10 mg t.i.d. 3. Iron supplements 65 mg daily. 4. Clonidine 0.1 mg at bedtime p.r.n. for sleep, we will discontinue that. 5. [place]-3 fatty acids. 6. Aspirin 81 mg daily. 7. Duloxetine 60 mg daily. 8. Gabapentin 300 mg b.i.d. 9. Lamotrigine or Lamictal 200 mg at bedtime. 10. Morphine sulfate 15 mg q. 8 hours, which has been reduced to 15 mg q. 12 hours. 11. Olanzapine 5 mg at bedtime that the patient has been taking since 2015. 12. Topiramate 100 mg t.i.d. as a mood stabilize r since 2014. 13. Trazodone 150 mg at bedtime p.r.n. The patie nt states that she has not taken it in the last several months. DRUG ALLERGIES: NONE KNOWN. SOCIAL HISTORY: The patient stopped smok ing cigarettes in 2014. Prior to that, the patient smoked 2 packs a day for 30 plus yea rs. The patient stopped drinking alcohol in about 20 01. Prior to that, she was a heavy drinker of alcohol. The patient would not quantitate how much. The patient is . She does live with her h usband in a 2-level house. Master bedroom is on the first floor. PATIENT NAME: LINDA MALIK ACCOUNT #: [id number] The patient did have surgery yesterday. The david ent was diagnosed as having right shoulder avascular necrosis with r etained hardware. The patient also had rotator cuff tear. The patient did undergo a right shoulder arthrotomy, open deep implant removal from proximal humerus, right total shoulder arth roplasty, reverse prosthesis. Postoperatively, the patient has been on the fol lowing medications: 1. Flexeril 10 mg q. 8 hours. 2. Olanzapine 5 mg at bedtime. 3. Lamictal 200 mg at bedtime. 4. MS Contin 15 mg q. 12 hours. 5. Gabapentin 300 mg b.i.d. 6. Topiramate 100 mg t.i.d. 7. Phoenix 10 and Phoenix 7.5 mg q. 4 hours p.r.n. PHYSICAL EXAMINATION: EYES: Pupils are equal, 3 mm in size. Extraocula r movements do show nystagmus to right and left lateral gaze. Decreased accomm odation of the right eye. NEUROLOGIC: Mental Status: The patient is alert. Tearful at times. She is oriented to place, to year. She could not subtra ct 7 from 100. She could reverse presidents x2 to Obama. Short-term memor y is intact to 3/3 objects. The patient states that her right should er pain on a scale of 0 to 10 is a 10. CRANIAL NERVES: II, III, IV, , as above; V, in tact to pinpoint; VII, no facial asymmetry; VIII, decreased to high-pitche d sounds bilaterally; IX, X, soft palate lifts midline; XI, XII intact. Motor : Good strength in the left arm, left hand, both legs. The patient can squeeze my fingers with her righ t hand. Sensory exam intact to pinpoint. Reflexes: Not tested, right biceps; not tested, right wrist; +2, left biceps; +1, left wrist; +1, both knees; 0, both ankles. CLINICAL DIAGNOSES: 1. Right humerus fracture - April 2016. 2. Open reduction and internal fixation of right humerus fracture. 3. Nonunion of right humerus. 4. Right humerus nonunion repair, hardware remov al - 09/18/2016. 5. Right shoulder arthroscop y, capsular release with manipulation - 02/13/2017. 6. Rotator cuff debridement - February 2017. 7. Subacromial decompression - 02/13/2017. 8. Musculoskeletal spasm of cervical spine, righ t shoulder, right arm. 9. Right shoulder avascular necrosis with retain ed deep implant. 10. Right shoulder arthrotomy, open deep implant removal from proximal humerus - 05/20/2018. 11. Right total shoulder arthroplasty with rever se prosthesis - 05/20/2018. 12. Chronic obstructive pulmonary disease. 13. Lung cancer - 2014. 14. Radiation therapy - November 2014. 15. Anemia. PATIENT NAME: LINDA MALIK ACCOUNT #: [id number] 16. History of thyroid nodules. 17. Bipolar depression. 18. Hypercholesterolemia. 19. Hypertriglyceridemia. 20. History of over utilization of prescribed na rcotics. 21. History of substance abuse - alcohol. 22. Bipolar depression. TREATMENT: I will increase olanzapine to 5 mg q. 6 hours serving as a narcotic enhancer. We will discontinue Phoenix 10 mg. I will give Phoenix 7.5 mg q. 4 hours p.r.n. sever e pain. We will prescribe Phoenix 5 mg q. 4 hours p.r.n. m oderate pain. I will prescribe Haldol 2 mg and Benadryl 12.5 mg IV push now and repeat dose in 4 hours to help her sleep and get through tonigh t. The patient will be discharged home tomorrow. Di scussed with the patient that she needs to get off the morphine and not be shine ing this on a long-term basis because she has built up a t olerance to the very strongest narcotics and nothing is working. Dictated By: Mello Stanford MD WT: [place].GONZALES/KAYLEE/NTS Conf#: [id number]/DID#: [id number] cc: Dae Gutiérrez MD Authenticated by Mello Stanford MD On 07/07 06:44:27 PM at 1844 PATIENT NAME: LINDA MALIK ACCOUNT #: [id number]
[2022-11-17] MEDS ORDERED: HYDROCODONE/APAP 5/325 MG TAB ONE (11:08)
--- NOTE | 2022-11-17 12:05 | RAD REPORT ---
EXAM DESCRIPTION: RAD - Chest Single View - 11/17/2022 11:59 am CLINICAL HISTORY: BLUNT CHEST TRAUMA Chest pain. COMPARISON: No comparisons FINDINGS: Portable technique limits examination quality. Diffuse emphysema with linear scarring or atelectasis at the right mid lung. The heart is upper limit normal size. Fracture of the midshaft of the left clavicle is present.
--- NOTE | 2022-11-17 12:06 | RAD REPORT ---
EXAM DESCRIPTION: RAD - Shoulder Left 2 View - 11/17/2022 11:59 am CLINICAL HISTORY: PAIN COMPARISON: No comparisons FINDINGS: Mildly overlapping fracture midshaft left clavicle. No dislocation.
[2022-11-17] MEDS ORDERED: MORPHINE 4 MG/ML SYR ONE (12:08)
--- NOTE | 2022-11-17 12:28 | ER ---
Nurse's Notes [facility] Name: Linda Malik Age: 62 yrs Sex: Female : 1960 Arrival Date: 11/17/2022 Time: 10:48 Bed 7 Private MD: Diagnosis: Displaced fracture of shaft of left clavicle Presentation: 11/17 10:59 Chief complaint: Patient states: I was hanging something on the wall and lost my kr3 balance and fell back off a stool. My collar bone is broken and I am having severe pain in the left collat bone area. Coronavirus screen: Vaccine status:. Ebola Screen: Patient denies travel to an Ebola-affected area in the 21 days before illness onset. Initial Sepsis Screen: Does the patient meet any 2 criteria? No. Patient's initial sepsis screen is negative. Does the patient have a suspected source of infection? No. Patient's initial sepsis screen is negative. Risk Assessment: Do you want to hurt yourself or someone else? Patient reports no desire to harm self or others. Onset of symptoms was November 17, 2022. 10:59 Method Of Arrival: Wheelchair kr3 10:59 Acuity: YAMILE 3 kr3 Triage Assessment: 11:01 General: Appears distressed, uncomfortable, Behavior is cooperative, appropriate for kr3 age. Pain: Complains of pain in left clavicle. EENT: No deficits noted. Neuro: Level of Consciousness is awake, alert, obeys commands, Oriented to person, place, time, situation. Cardiovascular: Patient's skin is warm and dry. Respiratory: Airway is patent Respiratory effort is even, unlabored, Respiratory pattern is regular, symmetrical. GI: No signs and/or symptoms were reported involving the gastrointestinal system. : No signs and/or symptoms were reported regarding the genitourinary system. Derm: No signs and/or symptoms reported regarding the dermatologic system. Musculoskeletal: Range of motion: limited in left shoulder. Historical: - Allergies: 11:27 Sulfa (Sulfonamide Antibiotics); vg1 - PMHx: 11:27 Anxiety; Depressive disorder; Hypertensive disorder; Hypercholesterolemia; Lung cancer; vg1 - PSHx: 11:27 Right Arm; R shoulder; R Ankle; vg1 - Immunization history:: Client reports receiving the 2nd dose of the Covid vaccine. - Social history:: Smoking status: . - Family history:: not pertinent. - Hospitalizations: : No recent hospitalization is reported. Screenin:28 [facility] ED Fall Risk Assessment (Adult) History of falling in the last 3 months, vg1 including since admission Yes- single mechanical fall (1 pt) Confusion or Disorientation No (0 pts) Intoxicated or Sedated No (0 pts) Impaired Gait No (0 pts) Mobility Assist Device Used No (0 pt) Altered Elimination No (0 pt) Score/Fall Risk Level 0 - 2 = Low Risk Oriented to surroundings, Maintained a safe environment, Educated pt \T\ family on fall prevention, incl call for assistance when getting out of bed, Assessed \T\ reinforced patient's understanding of fall precautions. Abuse screen: Denies threats or abuse. Denies injuries from another. Nutritional screening: No deficits noted. Tuberculosis screening: No symptoms or risk factors identified. Assessment: 11:26 General: Appears in no apparent distress. uncomfortable, Behavior is calm, cooperative. vg1 Pain: Complains of pain in left shoulder and left clavicle Pain currently is 8 out of 10 on a pain scale. Pain began 1 hour ago. Neuro: Level of Consciousness is awake, alert, obeys commands, Oriented to person, place, time, situation. Cardiovascular: Patient's skin is warm and dry. Respiratory: Airway is patent Respiratory effort is even, unlabored. GI: No signs and/or symptoms were reported involving the gastrointestinal system. : No signs and/or symptoms were reported regarding the genitourinary system. EENT: No signs and/or symptoms were reported regarding the EENT system. Derm: Skin is pink, warm \T\ dry. Musculoskeletal: Range of motion: limited in left shoulder. Vital Signs: 10:59 BP 169 / 74; Pulse 60; Resp 22; Temp 97.8; Pulse Ox 100% ; Height 5 ft. 3 in. ; Pain kr3 10/10; 11:31 BP 150 / 98; Pulse 61; Resp 16; Pulse Ox 100% ; vg1 11:43 Weight 54.43 kg; kr3 11:43 Body Mass Index 21.26 (54.43 kg, 160.02 cm) kr3 10:59 Pain Scale: Adult kr3 ED Course: 10:51 Patient arrived in ED. ts1 10:55 Jeromy Robert MD is Attending Physician. rn 10:59 Angelique Moran, RN is Primary Nurse. vg1 11:01 Triage completed. kr3 11:28 Patient has correct armband on for positive identification. Placed in gown. Bed in low vg1 position. Call light in reach. Side rails up X 1. Adult w/ patient. 11:28 No provider procedures requiring assistance completed. vg1 11:31 Arm band placed on. vg1 12:00 XRAY Shoulder LEFT 2 view In Process Unspecified. EDMS 12:00 XRAY Chest (1 view) In Process Unspecified. EDMS 12:34 Patient did not have IV access during this emergency room visit. vg1 Administered Medications: 11:26 Drug: HYDROcodone-acetaminophen PO 5 mg-325 mg 1 tabs Route: PO; vg1 12:34 Follow up: Response: No adverse reaction vg1 12:07 Drug: morphine IM 4 mg Route: IM; Site: left deltoid; vg1 12:34 Follow up: Response: No adverse reaction; Marked relief of symptoms vg1 Medication: 11:27 VIS not applicable for this client. vg1 Outcome: 12:27 Discharge ordered by . rn 12:33 Discharged to home ambulatory, with family. vg1 12:33 Condition: good 12:33 Discharge instructions given to patient, family, Instructed on discharge instructions, follow up and referral plans. medication usage, Demonstrated understanding of instructions, follow-up care, medications, Prescriptions given X 1. 12:34 Patient left the ED. vg1 Signatures: Dispatcher [employer] EDMS Jeromy Robert MD MD rn Garcia, Victoria, RN RN vg1 Nay Mortensen RN RN kr3 Lottie Olguin PAS PAS ts1
--- NOTE | 2022-11-17 12:28 | EDPHYS ---
Physician Documentation [facility] Name: Linda Malik Age: 62 yrs Sex: Female : 1960 Arrival Date: 11/17/2022 Time: 10:48 Bed 7 Private MD: ED Physician Jeromy Robert HPI: 11/17 12:22 This 62 yrs old Female presents to ER via Wheelchair with complaints of Shoulder Pain. rn 12:22 The patient or guardian complains of decreased range of motion, an injury. left rn clavicle. Onset: The symptoms/episode began/occurred just prior to arrival. Modifying factors: the symptoms are alleviated by remaining still, The symptoms are aggravated by movement. Severity of symptoms: At their worst the symptoms were moderate, in the emergency department the symptoms are unchanged. The patient has not experienced similar symptoms in the past. The patient has not recently seen a physician. hanging something up, lost balance, fell and landed on left side, hurt left collarbone. No other injuries. No head injury or pain, no neck pain. no back pain. . Historical: - Allergies: 11:27 Sulfa (Sulfonamide Antibiotics); vg1 - PMHx: 11:27 Anxiety; Depressive disorder; Hypertensive disorder; Hypercholesterolemia; Lung cancer; vg1 - PSHx: 11:27 Right Arm; R shoulder; R Ankle; vg1 - Immunization history:: Client reports receiving the 2nd dose of the Covid vaccine. - Social history:: Smoking status: . - Family history:: not pertinent. - Hospitalizations: : No recent hospitalization is reported. ROS: 12:22 Constitutional: Negative for fever, chills, and weight loss, Eyes: Negative for injury, rn pain, redness, and discharge, Neck: Negative for injury, pain, and swelling, Cardiovascular: Negative for chest pain, palpitations, and edema, Respiratory: Negative for shortness of breath, cough, wheezing, and pleuritic chest pain, Back: Negative for injury and pain, MS/Extremity: + injury and pain to left collarbone Skin: Negative for injury, rash, and discoloration, Neuro: Negative for headache, weakness, numbness, tingling, and seizure. Exam: 12:22 Constitutional: This is a well developed, well nourished patient who is awake, alert, rn appears in pain Neck: No midline cervical tenderness Chest/axilla: + tenderness over left mid clavicle, no tenting of skin, no puncture. Cardiovascular: Regular rate and rhythm. No pulse deficits. Respiratory: No increased work of breathing, no retractions or nasal flaring. Abdomen/GI: soft, non-tender Back: Full range of motion. Skin: Warm, dry MS/ Extremity: Pulses equal, no cyanosis. Neurovascular intact. Neuro: Awake and alert, GCS 15, oriented to person, place, time, and situation. Cranial nerves II-XII grossly intact. Motor strength 5/5 in all extremities. Sensory grossly intact. Cerebellar exam normal. Normal gait. Vital Signs: 10:59 BP 169 / 74; Pulse 60; Resp 22; Temp 97.8; Pulse Ox 100% ; Height 5 ft. 3 in. ; Pain kr3 10/10; 11:31 BP 150 / 98; Pulse 61; Resp 16; Pulse Ox 100% ; vg1 11:43 Weight 54.43 kg; kr3 11:43 Body Mass Index 21.26 (54.43 kg, 160.02 cm) kr3 10:59 Pain Scale: Adult kr3 MDM: 10:55 Patient medically screened. rn 12:22 Differential diagnosis: Anterior dislocation with fracture, Anterior dislocation rn without fracture, humeral head fracture, glenoid fracture, shoulder separation, clavicle fracture. Data reviewed: vital signs, nurses notes, radiologic studies, plain films, and as a result, I will discharge patient. Counseling: I had a detailed discussion with the patient and/or guardian regarding: the historical points, exam findings, and any diagnostic results supporting the discharge/admit diagnosis, radiology results, the need for outpatient follow up, to return to the emergency department if symptoms worsen or persist or if there are any questions or concerns that arise at home. Special discussion: I discussed with the patient/guardian in detail that at this point there is no indication for admission to the hospital. It is understood, however, that if the symptoms persist or worsen the patient needs to return immediately for re-evaluation. Based on the history and exam findings, there is no indication for further emergent testing or inpatient evaluation. I discussed with the patient/guardian the need to see the orthopedic surgeon for further evaluation of the symptoms. ED course: Pt states has prescription for percocet but doesn't have anymore at home, states motrin didn't help with pain, told her I could only prescribe 12 tramadol given new acute fracture and pain not controlled with OTC meds. She understands and is thankful. . 11/17 10:56 Order name: XRAY Shoulder LEFT 2 view; Complete Time: 12:11 rn 11/17 10:56 Order name: XRAY Chest (1 view); Complete Time: 12:11 rn 11/17 10:56 Order name: Shoulder Immobilizer; Complete Time: 11:58 rn Administered Medications: 11:26 Drug: HYDROcodone-acetaminophen PO 5 mg-325 mg 1 tabs Route: PO; vg1 12:34 Follow up: Response: No adverse reaction vg1 12:07 Drug: morphine IM 4 mg Route: IM; Site: left deltoid; vg1 12:34 Follow up: Response: No adverse reaction; Marked relief of symptoms vg1 Disposition Summary: 11/17/22 12:27 Discharge Ordered Location: Home rn Problem: new rn Symptoms: have improved rn Condition: Stable rn Diagnosis - Displaced fracture of shaft of left clavicle rn Followup: rn - With: Private Physician - When: As needed - Reason: Recheck today's complaints, Re-evaluation by your physician Discharge Instructions: - Discharge Summary Sheet rn - Clavicle Fracture rn Forms: - Medication Reconciliation Form rn - Thank You Letter rn - Antibiotic supervisor international reservations - Prescription Opioid Use rn Prescriptions: - Tramadol 50 mg Oral Tablet - take 1 tablet by ORAL route every 8 hours as needed; 12 tablet; Refills: 0, rn Product Selection Permitted Signatures: Dispatcher [employer] Jeromy Evans MD MD rn Garcia, Victoria RN RN vg1 Nay Mortensen RN RN kr3
[2022-11-17 12:39] VITALS: TEMP 97.8; O2SAT 100
[2022-11-17 12:41] VITALS: BP 150/98
== END 2022-11-17 12:34 | disposition home or self-care (01) ==
LOC: ER 10:48
DX: S42.022A Displaced fracture of shaft of left clavicle, initial encounter for closed fracture (principal); I10 Essential (primary) hypertension; Z88.2 Allergy status to sulfonamides
CPT/HCPCS: 71045; 96372; 99284

== ENCOUNTER 2022-12-29 14:43 | Emergency (ER) | payer BC ==
--- OUTSIDE RECORDS SUMMARY | 2022-12-29 14:46 | XMS REPORT | Clinical Summary ---
:1960 Author Organization [facility] MD [facility] Address [address] [place] [address] Care Team Providers Name Role Phone Tish [...] tablet by 0 Active /hyalur mouth twice ([id number]-HYAL daily. ORAL) pregabalin (LYRICA) 25 Take 25 [...] Vaccination (#1) 1960 Results Not on fileafter 12/29/2021 Insurance Payer Benefit Plan / Subscriber ID Effective Dates Phone Addre ss Type Group [facility] PPO POS [id number] 2016-Present [address] [place] [address] Care Teams Fitting Room Supervisor Relationship Specialty Start Date End Date Tish Welsh MD PCP - General 08/03/[address] [place] [phone] Nasir Downs MD Physician 08/10/[address] [place] [phone] Tish Welsh MD Physician 08/10/[address] [place] [address] [phone] Jasen Chaudhry MD Physician 08/10/15 Tangela Francois PA Physician Strategy Associate 08/10/[address] [place] [id number] Lon Roque MD Physician 08/10/[address] [place] [phone] Helder Segura, PA Physician Strategy Associate 08/10/15 [address] [place] [address] Sid Ace MD Physician 08/10/[address] [place] [id number] Jenni Shirley MD Physician 08/10/[address] [place] [id number]
--- OUTSIDE RECORDS SUMMARY | 2022-12-29 14:48 | XMS REPORT | Continuity of Care Document ---
:1960 Author Organization [facility] t Address [address] [place] [address] [place] [id number] Care Team Providers Name Role Phone Tish Welsh MD Primary Care Physician Mele Attending Clinician Unavailable Neto Fabian Attending Clinician Unavailable Dae Gutiérrez Attending Clinician [phone] Dae Gutiérrez Attending Clinician Unavailable ERI WILKINSON Attending Clinician Unavailable BROOK ALVA Attending Clinician Unavailable EMILIO SMITH Attending Clinician Unavailable ESTELA AGUILA Attending Clinician Unavailable MD SOBEIDA NIETO Attending Clinician Unavailable Mele Admitting Clinician Unavailable Dae Gutiérrez Admitting Clinician Unavailable Neto Fabian Admitting Clinician Unavailable UNDEFINED Admitting Clinician Unavailable SOBEIDA NIETO Admitting Clinician Unavailable MD SOBEIDA NIETO Admitting Clinician Unavailable Payers Payer Name Policy Type Policy Number Effective Date Expiration Date S herminia [facility] [id number] 2022-06-032023-06-03 00:00: 00 OF [place] (PPO) 00:00:00 Problems Condition Condition Condition Status Onset Resolution Last Treating Co mments Source Name Details Category Date Date Treatment Clinician Date Patient Patient Problem Active Sarah noncomplia Noncomplia 01-04 Or thope nce - nce - 00:00: dic general General 00 Sports Medicin e Loosening Loosening Problem Active Aza maite of of 12-20 Orthope prosthesis Prosthesis 00:00: [...] Added automatic ally from request for surgery [id number] History of History of Problem Active A cate operative Operative 12-03 Orth ope procedure Procedure 00:00: dic on on Sports shoulder Shoulder Medici n e Implantati Implantati Problem Active A zalea on of on of 09-03 Orthope joint [...] Problem Active 2017-06 A cate aseptic Aseptic 06-30 Orthope necrosis Necrosis 00:00: dic of bone of Bone 00 Sports Medicin e Strain of Strain of Problem Active Aza maite trapezius Trapezius 02-13 Orth ope muscle Muscle 00:00: dic 00 Sports Medicin e Bursitis Bursitis Problem Active Azale a of right of Right 02-13 Orthop e shoulder Shoulder 00:00: dic 00 Sports Medicin e Adhesive Adhesive Problem Active Sonjabecca a capsulitis Capsulitis 02-06 Or of of 00:00: dic shoulder Shoulder 00 Sports Medicin e Sprain of Sprain of Problem Active Sonja arora right Right 02-06 Orthope rotator Rotator 00:00: dic cuff Cuff 00 Sports capsule Capsule Medicin e Aftercare Aftercare Problem Active Sonja arora 4-19 Orthope 00:00: dic 00 Sports Medicin e Hypokalemi Hypokalemi Problem Active Jagdish saavedra a 3-29 Orthope 00:00: dic 00 Sports Medicin e Thyroid Thyroid Problem Active Sarah nodule Nodule 3-02 Orthope 00:00: dic 00 Sports Medicin e Hyperchole Hyperchole Problem Active Jagdish esposito sterolemia sterolemia 08-02 Or thope 00:00: dic 00 Sports Medicin e Bipolar Bipolar Problem Active Sarah disorder Disorder 3-02 Orthop e 00:00: dic 00 Sports Medicin e Mixed Mixed Problem Active Sarah anxiety Anxiety 3-02 Orthope and and 00:00: dic depressive Depressive 00 Sp orts disorder Disorder Medici n e Nonunion Nonunion Problem Active Malik saavedra of of 3- Orthope fracture Fracture 00:00: dic 00 Sports Medicin e Osteopenia Osteopenia Problem Active Jagdish lopeza 3-02 Orthope 00:00: dic 00 Sports Medicin e Fracture Fracture Problem Active Malik a of neck of of Neck of 3 Or thope humerus Humerus 00:00: dic 00 Sports Medicin e Postmenopa Postmenopa Problem Active Jagdish esposito usal state usal State 3-02 Or thope 00:00: dic 00 Sports Medicin e Pain of Pain of Problem Active Sarah right Right 3- Orthope shoulder Shoulder 00:00: dic joint Joint 00 Sports Medicin e Closed Closed Disease Active 2015-06 Methodi fracture fracture 06-23 of 00:00: Hospita proximal proximal 00 l end of end of right 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 Non-small Non-small Disease Active Uni vers cell lung cell lung 02-01 ity of cancer cancer 00:00: [place] 00 MD [facility] Synovitis Synovitis Problem Active Aza maite and/or And/or 06-25 Orthope tenosynovi Tenosynovi 00:00: di michele tis - tis - Sports ankle Ankle Medicin and/or And/or e foot Foot Foot pain Foot Pain Problem Active Aza maite 06-25 Orthope 00:00: dic 00 Sports Medicin e Osteoarthr Osteoarthr Problem Active A zalea itis of itis of 06-25 Orthope knee Knee 00:00: dic 00 Sports Medicin e Anemia Anemia Problem Active Sarah 06-24 Orthope 00:00: dic 00 Sports Medicin e Allergies, Adverse Reactions, Alerts Allergy Allergy Status Severity Reaction(s) Onset Inactive Treating Comm ents Source Name Type Date Date Clinician Sulfa DA Active [place] HIVES [facility] (Sulfona 6-28 [facility] 00:00: Hospita Antibiot 00 l of ics) [place] Sulfa DA Active [place] [facility] (Sulfona 7-20 Clear mide 00:00: [place] Antibiot 00 Regiona ics) [facility] Sulfa DA Active MO HIV [facility] (Sulfona 7-20 Clear mide 00:00: [place] Antibiot 00 Regiona ics) [facility] Codeine Propensi Active Rash Methodi ty to 11-07 st adverse 00:00: Hospita reaction 00 l s to drug Sulfa DA Active MO HIVES 2017-06 [facility] (Sulfona 2-05 [place] mide 00:00: Orthope Antibiot 00 dic ics) [facility] l Sulfa DA Active MO 2017-06 [facility] (Sulfona 2-05 Clear mide 00:00: [place] Antibiot 00 Regiona ics) [facility] Sulfa DA Active MO 2017-06 [facility] (Sulfona 1-30 [place] mide 00:00: Orthope Antibiot 00 dic ics) [facility] Sulf[facility] DA Active MO 2016- [facility] (Sulfona 9-13 [place] mide 00:00: Orthope Antibiot 00 dic ics) [facility] Sulfa Propensi Active 2015-06 Methodi (Sulfona ty to 06-23 st mide adverse 00:00: Hospita Antibiot reaction 00 l ics) s to drug Sulfamet Propensi Active Univer s hoxazole ty to 2-16 ity of adverse 00:00: [place] reaction 00 MD [facility] SULFA Allergy Active Sarah (SULFONA to -22 Orthope MIDE substanc 00:00: dic ANTIBIOT e 00 Sports ICS) Medicin e Family History Family Member Diagnosis Comments Start Date Stop Date Source Natural father Cancer [facility] Natural mother Diabetes [facility] Natural mother Heart disease [facility] Social History Social Habit Start Date Stop Date Quantity Comments Source History of tobacco Current smoker [facility] Gender identity [facility] Sexual orientation [facility] History of Social 2022-08-08 2022-08-08 [facility] function 00:00:00 00:00:00 Hospital Alcohol intake 2020-04-26 2020-04-26 Current [facility] 00:00:00 00:00:00 non-drinker of Hospital alcohol (finding) Tobacco use and 2019-11-17 2019-11-17 Smokeless [facility] exposure 00:00:00 00:00:00 tobacco non-user Hospital Sex Assigned At [birth year] [facility] 00:00:00 00:00:00 Hospital Smoking Status Start Date Stop Date Source [...] No acetaminop Sarah en 300 en 300 7-02 hen 300 Orthope mg-codeine mg-codeine 00:00: mg-codeine [...] 07:53: daily. Hosp lisa 38 l amLODIPine- 2019-06 Yes 1{capsu QD Take 1 M ethodi [...] 38 times a l gram day. capsule nebivoloL 2019-06 Yes 5mg QD Take 5 mg Met hodi (BYSTOLIC) 1-[address] 5 MG tablet 07:53: daily. Hosp lisa 38 l amLODIPine- 2019-06 Yes 1{capsu QD Take 1 M ethodi [...] No meloxicam Sarah 7.5 mg 7.5 mg -05 7.5 mg Orthope tablet TAKE tablet TAKE [...] Anderso needed for n muscle Cancer spasms. Center potassium Yes 550mg Take 550 Uni vers gluconate 9-26 mg by ity of 550 mg (90 15:19: mouth [place] mg) tab 07 daily. MD Ramos [facility] cholecalcif Yes 2000U Take 2,000 Univers montrell, 9-26 Units by ity of vitamin D3, 15:19: mouth [place] (VITAMIN 07 daily. D3) 2,000 Anderso units tab n tablet Cancer Colora ascorbic Yes 100mg Take 100 Univ ers acid, 9-26 mg by ity of vitamin C, 15:19: mouth (vitamin C) 07 daily. 100 mg Anderso tablet n [facility] b complex Yes 1{tbl} Take 1 Univ ers vitamins 9-26 tablet by ity of tablet 15:19: mouth [place] 07 daily. MD [facility] glucosam/ms Yes 1{tbl} Take 1 Un raegan m/chond/deanna 9-26 tablet by ity of w/hyalur 15:19: mouth [place] (GLUC-MSM-C 07 twice HON-DEANNA-HYA daily. Brigido o L ORAL) n Cancer Colora aspirin 81 Yes 81mg Chew 81 mg U nivers mg chewable 9-26 at ity of tablet 15:19: bedtime. 07 MD [facility] LAMOTRIGINE Yes 400mg Take 400 U nivers (LAMICTAL 9-26 mg by ity of ORAL) 15:19: mouth at 07 bedtime. MD [facility] polyethylen Yes 1{packe Take 1 U nivers e glycol 9-26 t} packet by ity of (MIRALAX) 15:19: [place] 17 g packet 07 needed. MD [facility] MULTIVITAMI 2019-0 Yes 1{tbl} Take 1 Un raegan N ORAL 9-26 tablet by ity of 15:19: mouth at [place] [address] bedtime. MD [facility] topiramate Yes 100mg Take 100 Un raegan (TOPAMAX) 9-26 mg by ity of 100 mg 15:19: mouth 3 [place] tablet 07 (three) MD leona smith [facility] simvastatin Yes 20mg Take 20 mg Univers (ZOCOR) 20 - by mouth ity o f mg tablet 15:19: at [place] [address] bedtime. MD Ramos [facility] OLANZAPINE Yes Take by Univ ers (ZYPREXA - mouth ity of ORAL) 15:19: daily. MD [facility] FERROUS Yes 65mg Take 65 mg Univ ers SULFATE 02-26 by mouth ity of ORAL 15:19: daily. [place] MD [facility] pregabalin Yes 25mg Take 25 mg U nivers (LYRICA) 25 9- by mouth ity of mg capsule 15:19: daily. [place] MD [facility] prednisone prednisone No prednisone Sarah 10 mg [...] tablet a 1 tablet a release 1 Medicin day day tablet a e day Lamictal Lamictal No Lamictal A zalea 200 mg 200 mg 3-02 200 mg Orthope tablet 1 tablet 1 00:00: tablet 1 d ic tablet a tablet a 00 tablet a Spo rts day Medicin e Librium Librium No Librium Azal ea 25mg once a 25mg once a 08-02 25mg once Orthope day day 00:00: a day dic 00 Sports Medicin e multivitami multivitami No multivitam Sarah n chewable n chewable 08-02 in Ort hope tablet 1 tablet 1 00:00: chewable d ic tablet a tablet a 00 tablet 1 Spo tablet a Medicin e pravastatin pravastatin No pravastati Sarah 80 mg 80 mg 08-02 n 80 mg Orthope tablet 1 tablet 1 00:00: tablet 1 d ic tablet a tablet a 00 tablet a Spo Medicin e Super Super No Super Sarah B-Complex B-Complex 08-02 B-Complex Orthope tablet 1 tablet 1 00:00: tablet 1 d ic tablet a tablet a 00 tablet a Spo Medicin e Topamax 100 Topamax 100 No Topamax Sarah mg tablet 1 mg tablet 1 08-02 100 mg Orthope tablet tablet 00:00: tablet 1 dic twice a day twice a day 00 tablet Sports twice a Medicin e Zyprexa 5 Zyprexa 5 No Zyprexa 5 Sarah mg tablet 1 mg tablet 1 3-02 mg tablet Orthope tablet a tablet a 00:00: 1 tablet a dic day Sports Medicin e Mobic 15 mg [...] Date Status Commen ts Source Name Name DULCE MARIA COVID-19 MRNA 2021-03-24 Completed Meth odist VACCINATION 00:00:00 [facility] COVID-19 MRNA 2021-03-24 Completed Meth odist VACCINATION 00:00:00 [facility] COVID-19 MRNA 2020-09-28 Completed Meth odist VACCINATION 00:00:00 [facility] COVID-19 MRNA 2020-09-28 Completed Meth odist VACCINATION 00:00:00 [facility] P[facility] COVID-19 MRNA 2020-09-07 Completed Meth odist VACCINATION 00:00:00 [facility] COVID-19 MRNA 2020-09-07 Completed Meth odist [...] Planned Date Details Comments Source Future Scheduled 2022-12-12 Screening for [facility] Test 15:32:26 malignant neoplasm of colon (procedure) [code = 508513043] Future Scheduled 2022-12-12 Screening for [facility] Test 15:32:26 malignant neoplasm of colon (procedure) [code = 224481854] Future Scheduled 2022-12-12 Screening for [facility] Test 15:32:26 malignant neoplasm of colon (procedure) [code = 300389508] Future Scheduled 2022-12-12 Hepatitis C screening [facility] Test 15:32:26 (procedure) [code = 421153140] Future Scheduled 2022-12-12 Screening for [facility] Test 15:32:26 malignant neoplasm of cervix (procedure) [code = 101414856] Future Scheduled 2022-12-12 BREAST CAN[facility] Test 15:32:26 SCREENING [code = BREAST CANCER SCREENING] Future Scheduled 2022-12-12 [facility] Test 15:32:26 malignant neoplasm of colon (procedure) [code = 116010678] Future Scheduled 2022-12-12 [facility] for [facility] Test 15:32:26 malignant neoplasm of colon (procedure) [code = 916547407] Future Scheduled 2022-12-12 SHINGLES VACCINES (1 Met [facility] Test 15:32:26 of 2) [code = SHINGLES VACCINES (1 of 2)] Future Scheduled 2022-12-12 COVID-19 VACCINE (4 - [facility] Test 15:32:26 Pfizer series) [code = COVID-19 VACCINE (4 - Pfizer series)] Future Scheduled 2022-12-12 INFLUENZA VACCINE [facility] Test 15:32:26 [code = INFLUENZA VACCINE] Future Scheduled 2022-11-16 [facility] for [facility] Test 15:40:37 malignant neoplasm of colon (procedure) [code = 384826451] Future Scheduled 2022-11-16 Screening for [facility] Test 15:40:37 malignant neoplasm of colon (procedure) [code = 230805558] Future Scheduled 2022-11-16 Scre[facility] for [facility] Test 15:40:37 malignant neoplasm of colon (procedure) [code = 777870032] Future Scheduled 2022-11-16 Hepatitis C screening [facility] Test 15:40:37 (procedure) [code = 806809418] Future Scheduled 2022-11-16 Screening for [facility] Test 15:40:37 malignant neoplasm of cervix (procedure) [code = 826799611] Future Scheduled 2022-11-16 BREAST CANCER [facility] Test 15:40:37 SCREENING [code = BREAST CANCER SCREENING] Future Scheduled 2022-11-16 [facility] for [facility] Test 15:40:37 malignant neoplasm of colon (procedure) [code = 525541477] Future Scheduled 2022-11-16 [facility] Test 15:40:37 malignant neoplasm of colon (procedure) [code = 387931492] Future Scheduled 2022-11-16 SHINGLES VACCINES (1 Met [facility] Test 15:40:37 of 2) [code = SHINGLES VACCINES (1 of 2)] Future Scheduled 2022-11-16 COVID-19 VACCINE (4 - [facility] Test 15:40:37 Pfizer series) [code = COVID-19 VACCINE (4 - Pfizer series)] Future Scheduled 2022-11-16 INFLUENZA VACCINE [facility] Test 15:40:37 [code = INFLUENZA VACCINE] Future Scheduled 2022-09-11 COVID-19 Vaccination Uni [facility] Test 16:03:30 (#1) [code = COVID-19 MD [facility] Vaccination (#1)] Center Encounters Start End Encounter Admission Attending Care Care Encounter Source Date/Time Date/Time Type Type Clinicians Facility Department ID 2022-12-14 2022-12-14 Outpatient FOG_Brown_B AOSM AOSM [id number] Sarah 00:00:00 00:00:00 Crystal [id number] Orth ope dic Sports Medicin e 2022-12-14 2022-12-14 Outpatient FOG_Brown_B AOSM AOSM [id number] Sarah 00:00:00 00:00:00 Crystal [id number] Orth ope dic Sports Medicin e 2022-12-03 2022-12-03 Outpatient FOG_Brown_B AOSM AOSM [id number] Sarah 00:00:00 00:00:00 Crystal [id number] Orth ope dic Sports Medicin e 2022-11-29 2022-11-30 Inpatient SHILPA CarrascoRui, HCATO SURG [id number] [facility] 08:16:00 15:12:00 Neto Ty [place] [facility] 2022-11-29 2022-11-29 Outpatient FOG_Brown_B AOSM AOSM [id number] Sarah 00:00:00 00:00:00 Crystal [id number] Orth ope dic Sports Medicin e 2022-11-28 2022-11-28 Outpatient FOG_Brown_B AOSM AOSM [id number] Sarah 00:00:00 00:00:00 Crystal [id number] Orth ope dic Sports Medicin e 2022-11-23 2022-11-23 Outpatient FOG_Brown_B AOSM AOSM [id number] Sarah 00:00:00 00:00:00 Crystal [id number] Orth ope dic Sports Medicin e 2022-11-21 2022-11-21 Outpatient FOG_Brown_B AOSM AOSM [id number] Sarah 00:00:00 00:00:00 Crystal [id number] Orth ope dic Sports Medicin e 2022-11-21 2022-11-21 Outpatient FOG_Brown_B AOSM AOSM [id number] Sarah 00:00:00 00:00:00 Crystal [id number] Orth ope dic Sports Medicin e 2022-11-20 2022-11-20 Outpatient FOG_Brown_B AOSM AOSM [id number] Sarah 00:00:00 00:00:00 Crystal [id number] Orth ope dic Sports Medicin e 2021-12-21 2021-12-21 Outpatient FOG_Brown_B AOSM AOSM [id number] Sarah 09:29:00 09:29:00 Crystal [id number] Orth ope dic Sports Medicin e 2021-12-21 2021-12-21 Outpatient Brock, AOSM AOSM [id number] 00:00:00 00:00:00 Dae Gavin [id number] 2021-12-21 Dae Gavin AOSM [place] - Ortho [id number] Sarah 00:00:00 00:00:00 MD Brock: Emily Parks - Orthope [address] FOG_Ofc dic [facility] [place], [place] [address] , Ph. [phone] 2021-09-21 2021-09-21 Outpatient FOG_Brown_B AOSM AOSM [id number] Sarah 11:23:00 11:23:00 Crystal [id number] Orth ope dic Sports Medicin e 2021-03-24 2021-03-24 Outpatient [facility] [id number] [place] 00:00:00 00:00:[address] 2020-12-20 2020-12-22 Inpatient EL GABRIELLE Gutiérrez OBSE [id number] [facility] 09:39:00 10:39:00 Dae 68 [place] [facility] 2020-12-20 2020-12-20 Outpatient Brock, HCACL LABO [id number] [facility] 18:25:00 18:25:00 Dae [id number] [facility] 2020-12-01 2020-12-01 Emergency MINH, [facility] [id number] [place] 00:00:00 00:00:00 ERI 290 Method i 2020-09-28 2020-09-28 Outpatient MORN, [facility] [id number] [place] 00:00:00 00:00:00 SUPRIYAER 246 Me thodi 2020-09-07 2020-09-07 Outpatient [facility] [id number] [place] 00:00:00 00:00:[address] 2020-04-26 2020-04-26 Outpatient [place], [facility] [id number] [place] 00:00:00 00:00:00 EMILIO 075 Method i 2020-04-26 2020-04-26 Outpatient [place], [facility] [id number] [place] 00:00:00 00:00:00 EMILIO 549 Method i 2020-01-26 2020-01-26 Outpatient [place], [facility] [id number] [place] 00:00:00 00:00:00 EMILIO [address] 2020-01-26 2020-01-26 Outpatient [place], [facility] [id number] [place] 00:00:00 00:00:00 EMILIO [address] 2019-12-15 2019-12-15 Outpatient [place], [facility] [id number] [place] 00:00:00 00:00:00 EMILIO [address] 2019-12-15 2019-12-15 Outpatient [place], [facility] [id number] [id number] [place] 00:00:00 00:00:00 EMILIO [address] 2019-12-01 2019-12-01 Outpatient [place], [facility] [id number] [place] 00:00:00 00:00:00 EMILIO [address] 2019-11-17 2019-11-17 Outpatient [place], [facility] [id number] [place] 00:00:00 00:00:00 EMILIO [address] 2019-11-08 2019-11-12 Inpatient AYLA [facility] [id number] [place] 00:00:00 00:00:00 ESTELA Butterfield Met enrique parekh Results Test Description Test Time Test Comments Results Result Comments Source AB HIV 1 2 2022-12-03 20:49:00 Test Item Value Reference Range Interpretation Comme nts AB HIV 1 2 (test code = NONREACTIVE NONREACTIVE Done by [employer] Centaur 4th [id number]) Gen HIV Ag/Ab C ombo Screen TESTING ON ORDER DATE. 11/28/22. REORDERED AND SENT ON BATCH CREATED ON 12/03/[id number] HIV 20:49:00 Test Item Value Reference Range Interpretation Comments AB HIV 1 (test code NONREACTIVE NONREACTIVE DONE AT: [facility] = HIV1AB) [facility] [address] [facility], [place] [address]Done by [employer] Cent aur 4th Gen HIV Ag/Ab C ombo Screen TESTING ON ORDER DATE. 11/28/22. REORDERED AND SENT ON BATCH CREATED ON 12/03/[id number] METABOLIC [id number] 06:56:00 Test Item Value Reference Range Interpretation Comments SODIUM (test code = 141 mmol/L 136-145 N NA) POTASSIUM (test 5.1 mmol/L 3.5-5.1 N code = K) CHLORIDE (test code 106.0 mmol/L 98-107 N = CL) CARBON DIOXIDE 18.8 mmol/L 21-32 L (test code = CO2) GLUCOSE (test code 88 mg/dL 70-110 N = GLU) BLOOD UREA NITROGEN 12 mg/dL 7-18 N (test code = BUN) GLOMERULAR 98.6 >60 The Glomerular FILTRATION RATE Filtration R ate is a (test code = GFR) calculated parameterbased on serum Creatinin e, patient age and sex. GFR valuesless than 60 mL/min/1.73 squ are meters are sergey cative ofChronic Kidne y Disease. Values less than 15 mL/min/1.73squa re meters indicate Kidney failure. The calculation for GFR is based on the CK D-EPI (2020) calculat ion. This formulais race indifferent and is the recommended for joelle for GFRby the N ational Kidney Foundati on for Adults.The GFR will not calculate i f the sex is unknown or if thepatient's ag e is <18 years. CREATININE (test 0.64 mg/dL 0.55-1.30 N code = CREAT) CALCIUM (test code 8.9 mg/dL 8.2-10.1 N = CA) CBC W/AUTO [id number] 06:09:00 Test Item Value Reference Range Interpretation Comments WHITE BLOOD CELL (test code = 16.0 K/mm3 5.8-11.0 H WBC) RED BLOOD CELL (test code = RBC) 3.83 M/mm3 4.2-5.4 L HEMOGLOBIN (test code = HGB) 11.8 g/dL 12-16 L HEMATOCRIT (test code = HCT) 35.8 % 37-47 L MEAN CELL VOLUME (test code = 94 fL 80-98 N MCV) MEAN CELL HGB (test code = MCH) 30.8 pg 27-34 N MEAN CELL HGB CONCENTRATION (test 33.0 g/dL 30.8-34.1 N code = MCHC) RED CELL DISTRIBUTION WIDTH (test 13.1 % 11-16 N code = RDW) PLT (test code = PLT) 244 K/mm3 130-400 N MEAN PLATELET VOLUME (test code = 11.4 fL 8.9-12.1 N MPV) NEUTROPHIL % (test code = NT%) 76.1 % 45-70 H LYMPHOCYTE % (test code = LY%) 16.4 % 20-40 L MONOCYTE % (test code = MO%) 6.4 % 3-10 N EOSINOPHIL % (test code = EO%) 0.2 % 1-5 L BASOPHIL % (test code = BA%) 0.5 % 0.0-1.1 N NEUTROPHIL # (test code = NT#) 12.16 K/mm3 2.00-7.50 H LYMPHOCYTE # (test code = LY#) 2.63 K/mm3 1.50-4.00 N MONOCYTE # (test code = MO#) 1.03 K/mm3 0.2-0.8 H EOSINOPHIL # (test code = EO#) 0.03 K/mm3 0.04-0.4 L BASOPHIL # (test code = BA#) 0.08 K/mm3 0.02-0.10 N MANUAL DIFF REQUIRED (test code = NO MANUAL DIFF MDIFF) NUCLEATED RED BLOOD CELL (test 0 % 0-0 N code = NRBC) C REACTIVE [id number] 15:24:00 Test Item Value Reference Range Interpretation Comments C REACTIVE PROTEIN (test code = < 0.2 mg/dL <0.9 CRP) AB HIV 15:24:00 Test Item Value Reference Range Interpretation Comments AB HIV 1 (test code = HIV1AB) NONREACTIVE COMPREHENSIVE METABOLIC [id number] 15:24:00 Test Item Value Reference Range Interpretation Comments SODIUM (test code = 139 mmol/L 136-145 N NA) POTASSIUM (test 3.4 mmol/L 3.5-5.1 L code = K) CHLORIDE (test code 103.0 mmol/L 98-107 N = CL) CARBON DIOXIDE 23.4 mmol/L 21-32 N (test code = CO2) GLUCOSE (test code 78 mg/dL 70-110 N = GLU) BLOOD UREA NITROGEN 11 mg/dL 7-18 N (test code = BUN) GLOMERULAR 79.8 >60 The Glomerular FILTRATION RATE Filtration R ate is a (test code = GFR) calculated parameterbased on serum Creatinin e, patient age and sex. GFR valuesless than 60 mL/min/1.73 squ are meters are sergey cative ofChronic Kidne y Disease. Values less than 15 mL/min/1.73squa re meters indicate Kidney failure. The calculation for GFR is based on the CK D-EPI (2020) calculat ion. This formulais race indifferent and is the recommended for joelle for GFRby the N [facility] Kid[facility] Foundati on for Adults.The GFR will not calculate i f the sex is unknown or if thepatient's ag e is <18 years. CREATININE (test 0.82 mg/dL 0.55-1.30 N code = CREAT) TOTAL PROTEIN (test 7.6 g/dL 6.4-8.2 N code = PROT) ALBUMIN (test code 4.1 g/dL 3.4-5.0 N = ALB) GLOBULIN (test code 3.5 g/dL 2.2-4.2 N = GLOB) ALBUMIN/GLOBULIN 1.2 0.7-2.0 N RATIO (test code = A/G) CALCIUM (test code 9.7 mg/dL 8.2-10.1 N = CA) BILIRUBIN TOTAL 0.30 mg/dL 0.2-1.00 N (test code = BILT) SGOT/AST (test code 15.0 U/L 15-37 N = AST) SGPT/ALT (test code 18.0 U/L 12-78 N = ALT) ALKALINE 92 U/L 46-116 N PHOSPHATASE TOTAL (test code = ALKP) HEPATIC FUNCTION [id number] 15:24:00 Test Item Value Reference Range Interpretation Comments BILIRUBIN DIRECT (test code = 0.10 mg/dL 0-0.2 N BILD) SED [id number] 15:24:00 Test Item Value Reference Range Interpretation Comments SED RATE (test code = SEDW) 7 mm/hr 0-30 N PROTHROMBIN [id number] 14:44:00 Test Item Value Reference Range Interpretation Comments PROTHROMBIN TIME 11.3 secs 9.4-12.5 N Please note new normal PATIENT (test code = range. PTP) INTERNATIONAL NORMAL 1.01 <2.0 RECOMME NDED THERAPEUTIC RATIO (test code = RANGE FOR ORAL INR) ANTICOAGULANTTR EATMENT: CONDITION INRPr ophylaxis of venous throm bosis in 2.0 - 3.0 high- risk medical or surg ical patientsTreatme nt of venous thrombos is 2.0 - 3.0Prevention o f embolism 2.0 - 3.0Prevention o f recurrent embol ism, or 3.0 - 4.5 patie nts with mechanical pros thetic intravascular v yu IS PATIENT ON ANTICOAGULANTS ? VTas Lab been notified if Patient is on Heparin Drip? NOTHROMBOPLASTIN TIME [id number] 14:44:00 Test Item Value Reference Range Interpretation Comments PTT ACTIVATED (test 35.6 secs 25.1-36.5 N Please n ote new code = APTT) normal range. IS PATIENT ON ANTICOAGULANTS ? NHas Lab been notified if Patient is on Heparin Drip? NOCBC W/AUTO [id number] 14:35:00 Test Item Value Reference Range Interpretation Comments WHITE BLOOD CELL (test code = WBC) 8.7 K/mm3 5.8-11.0 N RED BLOOD CELL (test code = RBC) 4.22 M/mm3 4.2-5.4 N HEMOGLOBIN (test code = HGB) 12.6 g/dL 12-16 N HEMATOCRIT (test code = HCT) 37.8 % 37-47 N MEAN CELL VOLUME (test code = MCV) 90 fL 80-98 N MEAN CELL HGB (test code = MCH) 29.9 pg 27-34 N MEAN CELL HGB CONCENTRATION (test 33.3 g/dL 30.8-34.1 N code = MCHC) RED CELL DISTRIBUTION WIDTH (test 12.7 % 11-16 N code = RDW) PLT (test code = PLT) 349 K/mm3 130-400 N MEAN PLATELET VOLUME (test code = 9.8 fL 8.9-12.1 N MPV) NEUTROPHIL % (test code = NT%) 53.3 % 45-70 N LYMPHOCYTE % (test code = LY%) 34.7 % 20-40 N MONOCYTE % (test code = MO%) 5.4 % 3-10 N EOSINOPHIL % (test code = EO%) 5.3 % 1-5 H BASOPHIL % (test code = BA%) 1.0 % 0.0-1.1 N NEUTROPHIL # (test code = NT#) 4.64 K/mm3 2.00-7.50 N LYMPHOCYTE # (test code = LY#) 3.03 K/mm3 1.50-4.00 N MONOCYTE # (test code = MO#) 0.47 K/mm3 0.2-0.8 N EOSINOPHIL # (test code = EO#) 0.46 K/mm3 0.04-0.4 H BASOPHIL # (test code = BA#) 0.09 K/mm3 0.02-0.10 N MANUAL DIFF REQUIRED (test code = NO MANUAL DIFF MDIFF) NUCLEATED RED BLOOD CELL (test 0 % 0-0 N code = NRBC) BASIC METABOLIC [id number] 07:30:00 Test Item Value Reference Range Interpretation Comments SODIUM (test code = 142 mmol/L 136-145 N NA) POTASSIUM (test code = 4.6 mmol/L 3.5-5.1 N K) CHLORIDE (test code = 107.0 mmol/L 98-107 N CL) CARBON DIOXIDE (test 26.5 mmol/L 21-32 N code = CO2) GLUCOSE (test code = 104 mg/dL 70-110 N GLU) BLOOD UREA NITROGEN 15 mg/dL 7-18 N (test code = BUN) GLOMERULAR FILTRATION 64.3 >60 Unit o f measure: RATE (test code = GFR) mL/mi n/1.73 [id number] Range:Healthy Adults >90 mL/min/1.73 m2 For Chronic Kidney Disease: Stage II Mild Decrease i n GFR 60-90 Stage III Moderate Decrea se in GFR 30-59 St age IV Severe Decre ase in GFR 15-29 St age V Kidney Failur e <15 CREATININE (test code 0.89 mg/dL 0.55-1.30 N = CREAT) CALCIUM (test code = 8.8 mg/dL 8.2-10.1 N CA) HGB [id number] 06:55:00 Test Item Value Reference Range Interpretation Comments HEMOGLOBIN (test code = HGB) 10.0 g/dL 12-16 L HEMATOCRIT (test code = HCT) 31.3 % 37-47 L - XR SHOULDER 1 V [id number] 16:04:00 [facility] 1960 Sex: F Patient Name: LINDA MALIK Unit No: [id number] EXAMS: CPT CODE: [id number] XR SHOULDER 1 V RT 14572 AP portable right shoulder COMMENT: The patient is status post reverse prosthesis placement which is articulating normally. at 1604 Reported and signed by: Orlin Johns MD CC: Dae Gutiérrez MD Technologist: PARUL HINOJOSA. RT(R) Transcribed D/ (6112) tGLADISL [facility] NAME: LINDA MALIK [address] [place] [address] PHYS: Dae Baca : 1960 AGE: 60 SEX: F [place] [address] LOC: TARIK PHONE #: [phone] EXAM DATE: 12/20/2020 [place] [facility] [place]: [phone] RAD #: D/C DT PAGE 1 Signed Report Patient Name: LINDA MALIK Unit No: [id number] EXAMS: CPT CODE: [id number] XR SHOULDER 1 V RT 61088 (Continued) Orig Print D/T: S: 12/20/2020 (1607) [facility] NAME: LINDA MALIK [address] [facility] PHYS: Dae Baca : 1960 AGE: 60 SEX: F [place] [address] LOC: TARIK PHONE #: [phone] EXAM DATE: 12/20/2020 [place] [facility] [place] #: [phone] RAD #: D/C DT PAGE 2 Signed ReportSARS coronavirus 2 RNA [Presence] in Respiratory specimen by SHABNAM with probe [id number] 19:51:28 Test Item Value Reference Range Interpretation Comments SARS coronavirus 2 RNA Not detected Not-Detected [Presence] in Respiratory specimen by SHABNAM with probe detection (test code = 76742-9) [facility]- XR FLUORO [id number] 14:54:00 Patient Name: LINDA MALIK Unit No: [id number] EXAMS: CPT CODE: [id number] XR FLUORO NDL 94783 Fluoroscopically guided right shoulder aspiration FINDINGS: After informed consent was obtained [id number] needle is inserted into the right shoulder under fluoroscopic guidance using sterile technique. 2 cc of thin red fluid was aspirated. This is sent to the lab for analysis. The patient tolerated the procedure well. 14 seconds of fluoroscopy time was used on this exam. IMPRESSION: Fluoroscopically guided right shoulder aspiration. at 1454 Reported and signed by: Palmer Tamez M.D. CC: Dae Gutiérrez MD Technologist: GENE HERNANDEZ, RT(R) Transcribed D/ (5975) [facility] NAME: LINDA MALIK [address] [facility] PHYS: Dae Baca Lisbeth : 1960 AGE: 58 SEX: F [place] [address] LOC: Y.RAD PHONE #: [phone] EXAM DATE: 09/24/2018 STATUS: DEP CLI FAX #: [phone] RAD #: D/C DT PAGE 1 Signed Report Patient Name: LINDA MALIK Unit No: [id number] EXAMS: CPT CODE: [id number] XR FLUORO NDL 00772 (Continued) Orig Print D/T: S: 09/25/2018 (5645) [facility] NAME: LINDA MALIK [address] [place] [address] PHYS: Dae Baca Lisbeth : 1960 AGE: 58 SEX: F [place] [address] LOC: Y.RAD PHONE #: [phone] EXAM DATE: 09/24/2018 STATUS: DEP CLI FAX #: [phone] #: D/C DT PAGE 2 Signed Report SYNOVIAL FLD CELL [id number] 13:24:00 Test Item Value Reference Range Interpretation Comments SYNOVIAL FLD BLOODY LT. YELLOW A COLOR (test code = COLSY) SYNOVIAL FLD BLOODY CLEAR A APPEARANCE (test code = APPSY) SYNOVIAL FLD 1 mL VOLUME (test code = VOLSY) SYNOVIAL FLD WBC 989.000 /MM3 0-200 H (test code = WBCSY) SYNOVIAL FLD RBC 498349.000 0-2 H NOTE: An au tomated (test [...] (test code = WBCSY) SYNOVIAL FLD RBC 877389.000 0-2 H NOTE: An au tomated (test [...] (test code = WBCSY) SYNOVIAL FLD RBC 050162.000 0-2 H NOTE: An au tomated (test code = /mm3 method is now b eing used RBCSY) to determinesyn ovial fluid WBC and R BC counts. The dif ferential willstill be pe rformed manually. SPECIMEN COMMENT: ASPIRATED BY DR TAMEZ RT SHOULDER Notes Date/Time Note Provider Source 2022-11-30 08:50:00-00:00 [facility] ([facility]) Clinical Note REPORT#:[id number] REPORT STATUS: Signed DATE:11/30/22 TIME: 0850 PATIENT: LINDA MALIK UNIT #: [id number] ROOM/BED: Y321-A : 56 AGE: 62 SEX: F ATTEND: Noemi Fabian MD ADM AUTHOR: Tashi Denny MD * ALL edits or amendments must be made on the el [employer]/computer document * Clinical Note Note: [facility] Tashi rosa M.D. (cell text [phone]) Assessment/Plan 1.) Anemia of acute blood loss- .Hgb 11.8, asymp tomatic. 2.) S/p ORIF left clavicle- .acute multi-modal p ain control and followup. Anticoagulation as per Dr. Fabian. 3.) Hypertension- .follow BP and hold Rxs if SBP <120. Will add isradipine( amlodopine 5mg not covered by her insura nce) to her regimen. She will followup with her pcp [facility] log of BP and pulse within the next 3 weeks. 4.) OsteoArthritis Hyperlipi demia(diet controlled) Hx of lung cancer[tx XRT 2014 - in remission]- .continue on Rx. * OK for DISCHARGE per Internal Medicine. Prior Events/Overnight: Uneventful. Chief Complaint: No significant complaints. Objective Vital Signs: Date Time Temp Pulse Resp B/P B/P Pulse O2 O2 F low FiO2 Mean Ox Delivery Rate 11/30 1006 98.2 75 14 164/78 107.0 97 Room air 11/30 0723 99.3 62 14 181/73 109.1 98 Room air 11/30 0443 94 Room air 0 21 11/30 0147 97.7 67 16 169/68 0.0 100 11/29 2146 98.2 84 16 151/67 95.1 98 11/29 2132 95 Room air 0 21 11/29 1940 Nasal 3 cannula 11/29 1936 99 Room air 11/29 1925 98.1 79 16 168/68 101.6 97 11/29 1719 98.4 85 18 146/73 97.5 96 Room air 11/29 1606 97.3 74 18 155/70 98.6 97 Room air 11/29 1550 Nasal 3 cannula 11/29 1545 97.9 72 13 146/67 100 Nasal 3 cannula 11/29 1530 74 18 149/66 100 Nasal 3 cannula 11/29 1515 86 19 195/83 100 Nasal 3 cannula 11/29 1500 70 15 194/88 100 Nasal 3 cannula 11/29 1445 64 11 212/92 100 Nasal 3 cannula 11/29 1430 74 16 209/89 100 Nasal 3 cannula 11/29 1416 Simple 10 mask 11/29 1416 98.4 86 14 210/100 100 Simple 10 mask Gen: Alert, oriented, in severe pain (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) Neck: No Masses, No Thyromegaly- CV: Regular Rate Rhythm / dressing dry Resp: Clear To Ascultation / Normal Respiratory Effort ABD: NonTender / NonDistended MS/Skin: No sign of compartment syndrome Other: Labs/X-ray: Laboratory Tests: 11/30 0301 Chemistry Sodium (136 - 145 mmol/L) 141 Potassium (3.5 - 5.1 mmol/L) 5.1 Chloride (98 - 107 mmol/L) 106.0 Carbon Dioxide (21 - 32 mmol/L) 18.8 L BUN (7 - 18 mg/dL) 12 Creatinine (0.55 - 1.30 mg/dL) 0.64 Glomerular Filtr Rate (>60) 98.6 Glucose (70 - 110 mg/dL) 88 Calcium (8.2 - 10.1 mg/dL) 8.9 Hematology WBC (5.8 - 11.0 K/mm3) 16.0 H RBC (4.2 - 5.4 M/mm3) 3.83 L Hgb (12 - 16 g/dL) 11.8 L Hct (37 - 47 %) 35.8 L MCV (80 - 98 fL) 94 MCH (27 - 34 pg) 30.8 MCHC (30.8 - 34.1 g/dL) 33.0 RDW (11 - 16 %) 13.1 Plt Count (130 - 400 K/mm3) 244 MPV (8.9 - 12.1 fL) 11.4 Neut % (Auto) (45 - 70 %) 76.1 H Lymph % (Auto) (20 - 40 %) 16.4 L [place] % (Auto) (3 - 10 %) 6.4 Eos % (Auto) (1 - 5 %) 0.2 L Baso % (Auto) (0.0 - 1.1 %) 0.5 Neut # (Auto) (2.00 - 7.50 K/mm3) 12.16 H Lymph # (Auto) (1.50 - 4.00 K/mm3) 2.63 [place] # (Auto) (0.2 - 0.8 K/mm3) 1.03 H Eos # (Auto) (0.04 - 0.4 K/mm3) 0.03 L Baso # (Auto) (0.02 - 0.10 K/mm3) 0.08 Add Manual Diff (MANUAL DIFF) NO Nucleated RBC % (0 - 0 %) 0 Tashi Kidd M.D. at 1232 RPT #:[id number] END OF REPORT 2022-11-30 08:36:00-00:00 [facility] ([facility]) Orthopaedic Progress Note REPORT#:[id number] REPORT STATUS: Signed DATE:11/30/22 TIME: 08 PATIENT: LINDA MALIK UNIT #: [id number] ROOM/BED: [address] : [birth year] AGE: 62 SEX: F ATTEND: Noemi Fabian MD ADM AUTHOR: Tish Hussein * ALL edits or amendments must be made on the [employer] document * Subjective Nursing reports: Yes: ambulating, pain, pain controlled. Objective VS: Last Documented: Result Date Time Pulse Ox 98 11/30 07 B/P 181/73 11/30 07 B/P Mean 109.1 11/30 07 O2 Delivery Room air 11/30 07 Temp 37.4 11/30 07 Pulse 62 11/30 0723 Resp 14 11/30 07 FiO2 21 11/30 0443 O2 Flow Rate 0 11/30 0443 PATIENT WEIGHT: Weight (lb): 124 Weight (oz): 12.51 Weight (kg): 56.600 Medications: Active Meds + DC'd Last 24 Hrs Magnesium Hydroxide (MILK OF MAGNESIA) 30 ML BED TIME PRN PRN PO Methocarbamol (ROBAXIN) 500 MG ANES Q6H PRN PRN PO (DC) Duloxetine HCl (CYMBALTA) 120 MG DAILY PO Loratadine (CLARITIN) 5 MG DAILY PO Losartan Potassium (COZAAR) 100 MG DAILY PO Spironolactone (ALDACTONE 25 MG TAB) 25 MG DAILY PO Topiramate (TOPAMAX) 100 MG DAILY PO Enoxaparin Sodium (LOVENOX) 40 MG DAILY 0600 SUB Q Methocarbamol (ROBAXIN) 500 MG Q6HR PO Labetalol HCl (LABETALOL HCL) 100 MG Q12HR PO Cefazolin Sodium (KEFZOL) 1 GM Q8H IV Sodium Chloride (SODIUM CHLORIDE) 10 ML Q8H IV Lactated Ringer's (LACTATED RINGERS) 1,000 ML .Q 20H IV Methocarbamol (ROBAXIN) 500 MG ANES Q6HR PO (DC) Alprazolam (ALPRAZolam) 0.5 MG Q12H PRN PRN PO Clonidine HCl (Clonidine 100 Mcg/1 mL PF) 100 MC G .STK-MED ONE INJ (DC) Lorazepam (ATIVAN 2 MG/ML VIAL) 0.5 MG PACU STAT IV (DC) Oxycodone HCl (ROXICODONE) 5 MG PACU STAT PO (DC ) Cefazolin Sodium (KEFZOL) 1 GM .STK-MED ONE IV ( DC) Dexamethasone Sodium Phosphate (DECADRON) 8 MG . STK-MED ONE IV (DC) Fentanyl Citrate (SUBLIMAZE) 200 MCG .STK-MED ON E IV (DC) Lactated Ringer's (LACTATED RINGERS) 2,000 ML .S TK-MED ONE IV (DC) Lidocaine HCl (XYLOCAINE PF) 5 ML .STK-MED ONE I V (DC) Midazolam HCl (VERSED) 5 MG .STK-MED ONE IV (DC) Ondansetron HCl (ZOFRAN) 4 MG .STK-MED ONE IV (D C) Propofol (DIPRIVAN) 200 MG .STK-MED ONE IV (DC) Rocuronium Orondo (Rocuronium Orondo 10 mg/mL) 50 MG .STK-MED ONE IV ( DC) Sugammadex Sodium (Bridion) 200 MG .STK-MED ONE IV (DC) Acetaminophen (TYLENOL) 650 MG Q4H PRN PRN PO Acetaminophen/Codeine Phosphate (TYLENOL W CODEI NE NO.3) 1 UDTAB Q4H PRN PRN PO Acetaminophen/Codeine Phosphate (TYLENOL W CODEI NE NO.3) 2 UDTAB Q4H PRN PRN PO Tramadol HCl (ULTRAM) 50 MG Q4H PRN PRN PO Tramadol HCl (ULTRAM) 100 MG Q4H PRN PRN PO Diphenhydramine HCl (BENADRYL) 12.5 MG ANES Q4H PRN PRN IV Diphenhydramine HCl (BENADRYL) 25 MG ANES BEDTIM E PRN PRN PO Hydromorphone HCl (HYDROmorphone 10 mg/NS 50 mL WRAPPER SORTER) 50 ML ASDIR IV (DC) IV Miscellaneous Supplies (WRAPPER SORTER MEDEIROS) 1 EA ASDIR M ISC (DC) Naloxone HCl (NARCAN) 0.1 - 0.2 MG ANES ASDIR IV (DC) Ondansetron HCl (ZOFRAN) 4 MG ANES Q4H PRN PRN I V Promethazine HCl (PHENERGAN) 6.25 MG ANES ASDIR PRN IM Fentanyl Citrate (SUBLIMAZE) 25 MCG PACU Q5MIN P RN PRN IV (DC) Hydralazine HCl (hydrALAZINE HCL) 10 MG PACU Q10 MIN PRN PRN IV (DC) Hydrocodone Bitart/Acetaminophen (NORCO 5/325 TA BLET) 1 UDTAB PACU Q4H PRN PRN PO (DC) Hydrocodone Bitart/Acetaminophen (NORCO 10/325 T ABLET) 1 UDTAB PACU Q4H PRN PRN PO (DC) Hydromorphone HCl (DILAUDID) 0.4 MG PACU Q5MIN P RN PRN IV (DC) Meperidine HCl (MEPERIDINE HCL) 12.5 MG PACU Q5M IN PRN PRN IV (DC) Methocarbamol (ROBAXIN) 500 MG PACU ONCE PRN PO (DC) Metoprolol Tartrate (LOPRESSOR) 2 MG PACU Q10MIN PRN PRN IV (DC) Ondansetron HCl (ZOFRAN) 4 MG PACU ONCE PRN PRN IV (DC) Promethazine HCl (PHENERGAN) 6.25 MG PACU Q15MIN PRN PRN IM (DC) Cefazolin Sodium (KEFZOL) 1 GM ONCALL IV (DC) Lactated Ringer's (LACTATED RINGERS) 1,000 ML MA EOP IV FLUID IV (DC) Lidocaine HCl (XYLOCAINE) 2 ML PREOP SUBQ (DC) Physical Exam General appearance: alert, oriented, no acute di stress Extremities: Left clavicle with dressing C/D/I. NVI. Diagnosis, Assessment Plan Free text A P: POD#1 s/p ORIF left clavicle - D/c home today - Takw 81 mg ASA daily once home for DVT prophyl axis - Pain controlled - PT - NWB to LUE Electronically Signed by Tish Hussein on at 0837 Electronically Signed by Neto Fabian MD on at 1313 RPT #:[id number] END OF REPORT 2022-11-29 21:40:00-00:00 [facility] ([facility]) Clinical Note REPORT#:[id number] REPORT STATUS: Signed DATE:11/29/22 TIME: 2139 PATIENT: LINDA MALIK UNIT #: [id number] [facility]: 62 SEX: F ATTEND: Noemi Fabian MD ADM AUTHOR: Tashi Denny MD * ALL edits or amendments must be made on the eCollect/computer document * Clinical Note Note: [facility] Tashi rosa MD (cell text [phone]) Internal Medicine Consult at request of : Dr. Bri Fabian. Chief Complaint: .clavicular pain HPI: 62yo F is now s/p ORIF left clavicle by Dr. Fabian. Ms. Malik fell at home while hanging a picture 11/17/22 and sustained a left clavicular fracture, pain 01/10. Comorbidities: see below. PmHx: .OsteoArthritis, HTN, bipolar, hyperlipide galindo, hx of lung cancer 2014 [ tx xrt - in remission] ALLERGY: Allergies: Sulfa (Sulfonamide Antibiotics) (Coded, Intermed iate, HIVES, 11/28/22) Home Medications: Home Medications: TOPIRAMATE (TOPAMAX) 100 MG PO DAILY MULTIVITAMIN (MULTIPLE VITAMIN) 1 TAB PO DAILY DULoxetine DR (CYMBALTA) 120 MG PO DAILY LABETALOL (TRANDATE) 100 MG PO Q12H ALPRAZolam (XANAX) 0.5 MG PO Q12H PRN ANXIETY LOSARTAN (COZAAR) 100 MG PO DAILY LEVOCETIRIZINE (XYZAL) 5 MG PO DAILY SPIRONOLACTONE (ALDACTONE) 25 MG PO DAILY oxyCODONE/APAP (PERCOCET 10/325 MG) 1 TAB PO Q8H PRN PAIN tiZANidine (ZANAFLEX) 4 MG PO Q8H PRN MUSCLE SPA SMS ZOLPIDEM (AMBIEN) 10 MG PO BEDTIME ASPIRIN 81 MG PO DAILY SgHx: .Shoulder and ankle surgery SHx: Tob: in past FHx: .No significant hx of DVT /PE. Alcohol: none Drugs: none Lives: with . . Vitals: Vital Signs: Date Time Temp Pulse Resp B/P B/P Pulse O2 O2 F low FiO2 Mean Ox Delivery Rate 11/30 2131 95 Room air 0 21 11/30 1939 Nasal 3 cannula 11/29 1936 99 Room air 11/29 1925 98.1 79 16 168/68 101.6 97 11/29 1719 98.4 85 18 146/73 97.5 96 Room air 11/29 1606 97.3 74 18 155/70 98.6 97 Room air 11/29 1550 Nasal 3 cannula 11/29 1545 97.9 72 13 146/67 100 Nasal 3 cannula 11/29 1530 74 18 149/66 100 Nasal 3 cannula 11/29 1515 86 19 195/83 100 Nasal 3 cannula 11/29 1500 70 15 194/88 100 Nasal 3 cannula 11/29 1445 64 11 212/92 100 Nasal 3 cannula 11/29 1430 74 16 209/89 100 Nasal 3 cannula 11/29 1416 Simple 10 mask 11/29 1416 98.4 86 14 210/100 100 Simple 10 mask 11/29 0857 98.0 79 20 174/77 99 Gen: Alert, in mild discomfort. On WRAPPER SORTER EYE: Nl lids conjunctiva. ENT: Nl ears Nose, nl lips,. Neck: Supple, nl thyroid, No masses. CV: Regular Rate Rhythm, no heave or significant murmur. Edema- none Left shoulder chest dressing clean, dryt RESP: Clear to Auscultation, normal Respiratory effort. ABD: Soft, NonDistended,. LYM: No significant cervical lymphadenopathy. MS: No sign of compartment syndrome, NEURO: Nonfocal, grossly normal sensation of LE . . Preop Labs(11/28/22): CBC:. Hgb 12.6, Plt 349, CHEM: Na 139, K 3.4, Cr 0.82 (eGFR 80%), . Ekg: NSB(52), LAD . (medium to high risk of complications or morbidi ty) (major surgery) (IV sedative, meds) . Assessment Plan 1.) Anemia of Acute Blood Loss- .will recheck to vogt. 2.) S/p ORIF left clavicle- .acute multi-modal p ain control and followup. Anticoagulation as per Dr. Fabian. 3.) Hypertension- .follow BP and hold Rxs if SBP <120. 4.) OsteoArthritis Hyperlipi demia(diet controlled) Hx of lung cancer[tx XRT 2014 - in remission]- .continue on Rx. . Tashi Kidd M.D. Thanks! . . . . . G9903 - Patient screened for tobacco use AND gui ntified as a tobacco non-user 1123F - ACP disscussion - default code status wh ile at [facility]. G8420 BMI is documented as within normal paramet ers (18-25). at 1129 RPT #:[id number] END OF REPORT 2022-11-29 20:01:00-00:00 [facility]) Clinical Note REPORT#:[id number] REPORT STATUS: Signed DATE:11/29/22 TIME: 2000 PATIENT: LINDA MALIK UNIT #: [id number] ROOM/BED: [address] : [birth year] AGE: 62 SEX: F ATTEND: Noemi Fabian MD ADM AUTHOR: Mello Stanford MD * ALL edits or amendments must be made on the el ectronic/computer document * Clinical Note Note: Consult Note Dictated [id number] Electronically Signed by Mello Stanford MD 11/29/22 at 2002 RPT #:[id number] END OF REPORT 2022-11-29 14:19:00-00:00 [facility] ([facility]) Op/Inv Procedure Note - Brief REPORT#:[id number] REPORT STATUS: Signed DATE:11/29/22 TIME: 1419 PATIENT: LINDA MALIK UNIT #: [id number] [facility] AGE: 62 SEX: F ATTEND: Noemi Fabian MD ADM AUTHOR: Tish Hussein * ALL edits or amendments must be made on the eCollect/computer document * Op/Inv Proc Note - Brief TEXT Brief Op/Inv Procedure Note Note details: *PRE-PROCEDURE DIAGNOSIS: Left clavicle fracture *POST-PROCEDURE DIAGNOSIS: Same *PROCEDURE(S) PERFORMED: ORIF left clavicle *PRIMARY SURGEON: Neto Fabian *CASINO GAMING INSPECTOR(S): Tish Hussein PA-C ANESTHETIC: General *ESTIMATED BLOOD LOSS in ml's: 20 cc *SPECIMEN(S) REMOVED: None *COMPLICATIONS: None DRAIN(S): None[] TUBE(S): None[] IMPLANT(S): None[] FLUIDS: [] URINE OUTPUT: [] *FINDINGS: Displaced midshaft clavicle fracture. Synthes pl ates x 2. DISPOSITION: To PACU Electronically Signed by Tish Hussein on at 1420 Electronically Signed by Neto Fabian MD on at 1313 RPT #:[id number] END OF REPORT 2022-11-21 12:06:00-00:00 [id number] [facility] [place] [address] PATIENT NAME: LINDA MALIK ADMIT DATE: ACCOUNT NO: [id number] ROOM NO: AGE: 62 REPORT TYPE: ELECTROCARDIOGRAM SEX: F ADMITTING PHYSICIAN: ATTENDING PHYSICIAN:Dae Gutiérrez MD Order: [id number] Test Reason : HISTORY OF HTN Test Date/Time Stamp: SatNov 21 2022 12:06:35 Blood Pressure : / mmHG Vent. Rate : 052 BPM Atrial Rate : 052 BPM P-R Int : 146 ms QRS Dur : 094 ms QT Int : 486 ms P-R-T Axes : -03 -30 006 degree s QTc Int : 451 ms Sinus bradycardia Left axis deviation Nonspecific ST abnormality Abnormal ECG When compared with ECG of 11-FEB-2017 09:10, No significant change was found Confirmed by SARAH WASHINGTON MD ([id number]) on 11/22/2022 12:14:05 PM Referred By: Dae Gutiérrez Confirmed by:SARAH Romero MD PATIENT NAME: LINDA MALIK ACCOUNT #: [id number] 2020-12-23 14:06:00-00:00 [id number] [place] [address] PATIENT NAME: LINDA MALIK ADMIT DATE: 12/20/20 ACCOUNT NO: [id number] ROOM NO: AGE: 60 REPORT TYPE: DISCHARGE [...] been receiving opioids as an outpatient fro [facility] physician in [facility] and was not able to contact [...] medications. Dictated By: Dae Gutiérrez MD WT: DS:SONAM/ROSALIA/NTS Conf#: [id number]/DID#: [id number] Authenticated by Dae Gutiérrez MD On 12/27/19 07:29:42 AM PATIENT NAME: LINDA MALIK ACCOUNT #: [id number] at 0730 PATIENT NAME: LINDA MALIK ACCOUNT #: [id number] 2020-12-22 07:07:00-00:00 [facility] ([facility]) Clinical Note REPORT#:[id number] REPORT STATUS: Signed DATE:12/22/20 TIME: 706 PATIENT: LINDA MALIK UNIT #: [id number] ROOM/BED: [address] : 56 AGE: 60 SEX: F ATTEND: Jasmyne Gutiérrez MD ADM AUTHOR: Dae Gutiérrez * ALL edits or amendments must be made on the eCollect/computer document * Clinical Note Note: HAD EPISODE [...] INSTRUCTIONS PER D/C SHEET at 0709 RPT #:[id number] END OF REPORT 2020-12-21 15:15:00-00:00 [facility] ([facility]) Clinical Note REPORT#:[id number] REPORT STATUS: Signed DATE:12/21/20 TIME: 1515 PATIENT: LINDA MALIK UNIT #: [id number] ROOM[facility]BED: [facility] : 56 AGE: 60 SEX: F ATTEND: Jose Alfredo Gutiérrez MD ADM AUTHOR: Mello Stanford MD * ALL edits or amendments must be made on the el ectronic/computer document * Clinical Note Note: Consult Note Dictated [id number] Electronically Signed by Mello Stanford MD o n 12/21/20 at 1518 RPT #:[id number] END OF REPORT 2020-12-21 14:50:00-00:00 [id number] [place] [id number] PATIENT NAME: LINDA MALIK ADMIT DATE: 0 12/20/20 ACCOUNT NO: [id number] ROOM NO: AGE: 60 REPORT TYPE: CONSULTATION REPORT SEX: F ADMITTING PHYSICIAN: ATTENDING PHYSICIAN:Dae Gutiérrez MD CONSULTATION DATE: 12/21/2020 CONSULTING PHYSICIAN: Mello Stanford MD NEUROLOGY CONSULTATION HISTORY OF PRESENT ILLNESS: The patient is a 60- year-old woman, , right handed, right footed. The patient was admitted to [facility] yesterday, December 20. The patient did come out of the OR late last evening and I am seeing her today the following day, December 21. The patient did sustain a right humerus fracture in 2017. The patient has had several operations to the [facility] arm. The patient did have initial open [...] November 02 followed by radiation therapy at [facility]. 2. Hypothyroidism. PATIENT NAME: LINDA MALIK ACCOUNT #: [id number] 3. Hypertension. 4. Hypercholesterolemia. 5. Hypertriglyceridemia. 6. [...] The patient could reverse presidents x2 to Neymar Norton. PATIENT NAME: LINDA MALIK ACCOUNT #: [id number] Short-term memory reduced. After 30 seconds, she [...] CLINICAL DIAGNOSES: 1. Right humerus fracture occurring approximatel 2016. 2. Open reduction and internal fixation [...] management physician. I did get on the [facility] A penaloza Program. The patient has received from Mellissa Martines MD, in [facility] on 12/02/2020 Nor o 10/325 one tablet t.i.d., dispensed 90 pills. The patient also did receive from Dr. Martines on November 15 oxycodone 10 mg 1 tablet q.i.d., dispensed 120 pills. The patient has also received in [facility] Room tramadol 50 mg 20 tablets, prescription written on December 01 by Luther Goldberg. The patient has been told she will be given a pr escription for Flexeril 10 mg one-half tablet t.i.d., dispensing 15 pills with one refill. The patient PATIENT NAME: LINDA MALIK ACCOUNT #: [id number] instructed to take as scheduled for 10 [...] be given prescription of na rcotics from [facility] and she will have t o go to her treating doctor, Mellissa Martines MD, for any additional pain medicines. The patient's medications prior to this admissio n include the followin. Chlordiazepoxide (Librium) 20 mg daily p.r.n. 2. Duloxetine 120 mg q.a.m. 3. Gruetli Laager 10/325 q. 6 hours. 4. Lamotrigine (Lamictal) [...] weeks. Dictated By: Mello Stanford MD WT: CON:SONAM/KAYLEE/CHIARA Conf#: [id number]/DID#: [id number] cc: Dae Gutiérrez MD Authenticated by Mello Stanford MD On 01/20 02:21:23 PM at 1421 PATIENT NAME: LINDA MALIK ACCOUNT #: [id number] 2020-12-21 07:53:00-00:00 [facility] ([facility]) Clinical Note REPORT#:[id number] REPORT STATUS: Signed DATE:12/21/20 TIME: 752 PATIENT: LINDA MALIK UNIT #: [id number] ROOM/BED: [facility]-A : 58 AGE: 60 SEX: F ATTEND: Jose Alfredo Gutiérrez MD ADM AUTHOR: Dae Gutiérrez * ALL edits or amendments must be made on the eCollect/computer document * Clinical Note Note: PAIN CONTROLLED [...] INSTRUCTIONS PER D/C SHEET at 0757 RPT #:[id number] END OF REPORT 2020-12-21 07:28:00-00:00 [facility] ([facility]) Pain Management Progress Note REPORT#:[id number] REPORT STATUS: Signed DATE:12/21/20 TIME: 727 PATIENT: LINDA MALIK UNIT #: [id number] ROOM/BED: O22-A : 58 AGE: 60 SEX: F ATTEND: Jose Alfredo Gutiérrez MD ADM AUTHOR: Katya Olivia * ALL edits or amendments must be made on the eCollect/Fanatics document * Subjective Chief Complaint: R SHOULDER PAIN S/P ARTHROTOMY, HUMERAL OSTEOTOM Y, I D Comments: Last Documented: Result Date Time Pulse Ox 100 12/22 719 B/P 115/65 12/22 719 B/P Mean 81.9 12/22 719 O2 Delivery Nasal cannula 12/22 719 Temp 36.2 12/22 719 Pulse 69 12/21 07 Resp 15 12/22 719 FiO2 32 12/21 0246 O2 Flow Rate [...] TRANSFERRED TO DR. STANFORD at 0731 RPT #:[id number] END OF REPORT 2020-12-20 22:43:00-00:00 [facility] ([facility]) Clinical Note REPORT#:[id number] REPORT STATUS: Signed DATE:12/20/20 TIME: 2242 PATIENT: LINDA MALIK UNIT #: [id number] [facility]GE: 60 SEX: F ATTEND: Jose Alfredo Gutiérrez MD ADM AUTHOR: Cristela Harding MD * ALL edits or amendments must be made on the eCollect/Fanatics document * Clinical Note Note: Internal Medicine Consult Cristeal Harding MD (office: [phone]) Patient Name: Linda Malik Date of Service: [...] rrow. 2. 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 3. Physical Therapy, Wound Care, Drain R emoval, post OP steroids, and Starting of DVT Rx per Orthopedics 4. Hypertension- Continue home BP medication plu s a PRN 5. Hx of ling CA radiation, but lungs are clear, c/o a little SOB but exam benign Thank You for the consult Cristela Harding M.D. 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 POSTOPERATIVE DIAGNOSIS: Mechanical failure reve rse right total shoulder arthroplasty. PROCEDURES PERFORMED: 1. Right shoulder arthrotomy with frozen section . 2. Right shoulder two-component revision reverse total shoulder arthroplasty. SURGEON: Dae Gutiérrez MD CASINO GAMING INSPECTOR: MD Dr. Xander Avendaño, surgical elastic knitter hand frame, was medically necessary for the procedure. His [...] service. The patient was placed in the [facility] on operating room table and all bony prominences were well padded. No tourniquet was applied. The right upper PATIENT NAME: LINDA MALIK ACCOUNT #: [id number] extremity was prepped and draped in sterile fas ion and sterile drapes were applied. Time-out [...] was subsequently eleva edwin and removed. The Mang?rKart Tornier Love stem insertion handle was then [...] was turned to the revision arthroplasty. The [facility] [place] Revive stem trials were brought into place. [...] procedur e well, was extubated, transferred to [facility], and onto the [facility] in satisfactory condition. ESTIMATED BLOOD LOSS: 150 mL INTRAVENOUS FLUIDS: 1.5 liters of crystalloid, 5 00 mL of albumin. COMPLICATIONS: There were no known intra operative complications. Cultures will be followed. Dictated By: Dae Gutiérrez MD PATIENT NAME: LINDA MALIK ACCOUNT #: [id number] WT: OP:SONAM/ROSALIA/NTS Conf#: [id number]/DID#: [id number] Authenticated by Dae Gutiérrez MD On 12/22/19 07:12:06 AM at 0712 PATIENT NAME: LINDA MALIK ACCOUNT #: [id number] 2020-12-20 14:55:00-00:00 [facility] ([facility]) Brief Op Note REPORT#:[id number] REPORT STATUS: Signed DATE:12/20/20 TIME: 1454 PATIENT: LINDA MALIK UNIT #: [id number] ROOM/BED: : 58 AGE: 60 SEX: F ATTEND: Jose Alfredo Gutiérrez MD ADM AUTHOR: Dae Gutiérrez * ALL edits or amendments must be made on the el ectronic/computer document * Op/Inv Proc Note - Brief Pre-procedure diagnosis: MECHANICAL LOOSENING REVERSE RIGHT TOTAL SHOULDE R ARTHROPLASTY Post-procedure diagnosis: same as pre procedure dx Procedures performed: RIGHT SHOULDER ARTHROTOMY, FROZEN SECTION REVISION TWO COMPONENT RIGHT REVERSE TOTAL SHOUL MONICA ARTHROPLASTY Primary Surgeon: DAE GUTIÉRREZ MD Veterinarian(s): TASHI MUÑOZ MD Anesthesia: combined general/regional Findings: MECHANICAL LOOSENING LESS THAN 5WBC/HPF METALLOSIS SEE DICTATION Complications: none Estimated blood loss in ml's: 150ML Specimens removed/altered: TISSUE, IMPLANT Drain(s): HVAC X 1 Fluids: 500ML ALBUMIN 1.5L [facility] at [address] [place] [address] #:[id number] END OF REPORT 2018-05-22 16:41:00-00:00 [id number] [place] [address] PATIENT NAME: LINDA MALIK ADMIT DATE: 07/21/17 ACCOUNT NO: [id number] ROOM NO: Y.315 AGE: 58 REPORT TYPE: PROGRESS NOTE SEX: [...] at home. Nurses have been giving her Gruetli Laager 5 mg q. 4 hour s p.r.n. I told the patient that I will give her Gruetli Laager 5 mg 1 tablet b.i.d. p.r.n. for breakthrough pain, dispensed 14 tablets. That will give her enough time to get into her pain management physician next week aft moe Babb. PATIENT NAME: LINDA MALIK ACCOUNT #: [id number] I also did discuss with the patient [...] By: Mello Stanford MD WT: PN:SONAM/KAYLEE/CHIARA Conf#: [id number]/DID#: [id number] cc: Dae Gutiérrez MD Authenticated by Mello Stanford MD On 07/07 06:44:33 PM at 1844 PATIENT NAME: LINDA MALIK ACCOUNT #: [id number] 2018-05-21 20:11:00-00:00 [id number] [facility] [address] [place] [address] PATIENT NAME: LINDA MALIK ADMIT DATE: 07/21/17 ACCOUNT NO: [id number] ROOM NO: Y.315 AGE: 58 REPORT TYPE: [...] medication management. The patient was admitted to [facility] yesterday, 05/20/2018. She did come out [...] PATIENT NAME: LINDA MALIK ACCOUNT #: [id number] 2015. 2. Right humerus nonunion repair and [...] for sleep, we will discontinue that. 5. [place]-3 fatty acids. 6. Aspirin 81 mg daily. [...] is . She does live with her [facility], [facility] in a 2-level house. Master bedroom is on the first floor. PATIENT NAME: LINDA MALIK ACCOUNT #: [id number] The patient did have surgery yesterday. The [...] b.i.d. 6. Topiramate 100 mg t.i.d. 7. Gruetli Laager 10 and Gruetli Laager 7.5 mg q. 4 hours p.r.n. PHYSICAL [...] PATIENT NAME: LINDA MALIK ACCOUNT #: [id number] 16. History of thyroid nodules. 17. Bipolar depression. 18. Hypercholesterolemia. 19. Hypertriglyceridemia. 20. History of over utilization of prescribed na rcotics. 21. History of substance abuse - alcohol. 22. Bipolar depression. TREATMENT: I will increase olanzapine to 5 mg q. 6 hours serving as a narcotic enhancer. We will discontinue Gruetli Laager 10 mg. I will give Gruetli Laager 7.5 mg q. 4 hours p.r.n. sever e pain. We will prescribe Gruetli Laager 5 mg q. 4 hours p.r.n. m [...] working. Dictated By: Mello Stanford MD WT: CON:Y.HIM/MOLST/NTS Conf#: [id number]/DID#: [id number] cc: Dae Gutiérrez MD Authenticated by Mello Stanford MD On 07/07 06:44:27 PM at 1844 PATIENT NAME: LINDA MALIK ACCOUNT #: [id number]
[2022-12-29 15:35] LABS: Absolute Lymphocytes (CBC) 3.2 K/uL (0.7-4.9); Hematocrit 40.7 % (36.0-45.0); MPV 7.2 fL (7.6-11.3); RBC Red Blood Cell Count 4.48 M/uL (3.86-4.86)
[2022-12-29 15:53] LABS: Albumin 4.1 g/dL (3.4-5.0); Bilirubin Direct 0.1 mg/dL (0-0.2); Bilirubin Indirect, Calculated 0.3 mg/dL (0.2-0.8); Bilirubin Total 0.4 mg/dL (0.2-1.0); Magnesium 2.2 mg/dL (1.6-2.4); Potassium 3.5 mEq/L (3.5-5.1); Protein, Total 8.6 g/dL (6.4-8.2)
[2022-12-29] MEDS ORDERED: HYDRALAZINE HCL 20 MG/ML VIAL ONE (15:53)
[2022-12-29 16:04] LABS: Troponin High Sensitivity 4.2 pg/mL (<58.9)
--- NOTE | 2022-12-29 16:14 | RAD REPORT ---
EXAM DESCRIPTION: RAD - Chest Single View - 12/29/2022 4:05 pm CLINICAL HISTORY: SOB Chest pain. COMPARISON: Chest Single View dated 11/17/2022 FINDINGS: Portable technique limits examination quality. Scarring is present in the right mid lung with volume loss. The lungs are emphysematous. The heart is normal in size. Right total shoulder arthroplasty.Left clavicular hardware. IMPRESSION: No acute intrathoracic process suspected.
--- NOTE | 2022-12-29 16:23 | RAD REPORT ---
EXAM DESCRIPTION: CT - Head Brain Wo Cont - 12/29/2022 4:15 pm CLINICAL HISTORY: NUMBNESS Headache, drowsiness COMPARISON: No comparisons TECHNIQUE: All CT scans are performed using dose optimization technique as appropriate and may inclu de automated exposure control or mA/KV adjustment according to patient size. FINDINGS: No intracranial hemorrhage, hydrocephalus or extra-axial fluid collection.No areas of brai n edema or evidence of midline shift. The paranasal sinuses and mastoids are clear. The calvarium is intact. IMPRESSION: No acute intracranial abnormality.
[2022-12-29] MEDS ORDERED: LORazepam 2 MG/ML VIAL ONE (16:24)
[2022-12-29 16:27] LABS: Specific Gravity 1.006 (1.005-1.030); Urine Bacteria None Seen /HPF (<20); Urine Bilirubin NEGATIVE (Negative); Urine Blood Trace (Negative); Urine Clarity Clear (Clear); Urine Color Colorless (Yellow); Urine Glucose NEGATIVE (Negative); Urine Protein NEGATIVE (Negative); Urine RBC <5 /HPF (None Seen); Urine Urobilinogen Normal (Normal); Urine pH 6.5 (5.0-7.0)
--- NOTE | 2022-12-29 16:39 | RAD REPORT ---
EXAM DESCRIPTION: CT - Angio Aorta For Dissection - 12/29/2022 4:26 pm CLINICAL HISTORY: Chest pain radiating to the back. shortness of breath;Abd pain COMPARISON: No comparisons TECHNIQUE: CT angiography of the aorta was performed with MIPs. All CT scans are performed using dose optimization technique as appropriate and may include automated exposure control or mA/KV adjustment according to patient size. FINDINGS: A left aortic arch is present with normal branching pattern of the great vessels.No acute aortic finding is seen such as aneurysm, penetrating ulcer or dissection. The celiac axis, SMA, RENUKA and renal arteries are patent. Dzxr-tt-gpshmkzb aortoiliac atherosclerotic plaquing. No evidence of pulmonary embolism. The lungs are clear. 22 mm left thyroid nodule. The liver demonstrates no focal mass or biliary dilatation.The spleen, pancreas, adrenal glands and k idneys are within normal limits for arterial phase imaging. No bowel obstruction, free fluid or abscess.Normal appendix. Significant fecal retention throughout t he colon.No pathologic enlarged lymphadenopathy identified. Moderate lumbosacral degenerative changes. IMPRESSION: No acute aortic finding is demonstrated. Prominent fecal retention.
--- NOTE | 2022-12-29 17:41 | ER ---
Nurse's Notes [facility] Name: Linda Malik Age: 62 yrs Sex: Female : 1960 Arrival Date: 12/29/2022 Time: 14:43 Bed 5 Private MD: Diagnosis: Hypertensive heart disease without heart failure;Anxiety disorder, unspecified;Paresthesia of skin-intermittent left leg;Constipation Presentation: 12/29 14:55 Chief complaint: Patient states: BP problem after starting isradipine 5 MG BID since llNovember 30. Feels weak, dizzy, numb L leg last night, so she stopped the medication on Saturday. Coronavirus screen: Vaccine status: Patient reports receiving the 2nd dose of the covid vaccine. Client denies travel out of the [place] in the last 14 days. At this time, the client does not indicate any symptoms associated with coronavirus-19. Ebola Screen: Patient denies travel to an Ebola-affected area in the 21 days before illness onset. Initial Sepsis Screen: Does the patient meet any 2 criteria? No. Patient's initial sepsis screen is negative. Does the patient have a suspected source of infection? No. Patient's initial sepsis screen is negative. Risk Assessment: Do you want to hurt yourself or someone else? Patient reports no desire to harm self or others. Onset of symptoms was December 23, 2022. 14:55 Method Of Arrival: Ambulatory ll1 14:55 Acuity: YAMILE 3 ll1 Historical: - Allergies: 14:58 Sulfa (Sulfonamide Antibiotics); ll1 - PMHx: 14:58 Anxiety; depressive disorder; Hypercholesterolemia; Hypertensive disorder; Lung Cancer; ll1 - PSHx: 14:58 R ankle; R shoulder; right arm; L clavicle FX repair; ll1 - Immunization history:: Client reports receiving the 2nd dose of the Covid vaccine. - Social history:: Smoking status: Patient denies any tobacco usage or history of. Screenin:08 [facility] ED Fall Risk Assessment (Adult) Score/Fall Risk Level 0 - 2 = Low Risk hb Oriented to surroundings, Maintained a safe environment. Abuse screen: Denies threats or abuse. Denies injuries from another. Nutritional screening: No deficits noted. Tuberculosis screening: No symptoms or risk factors identified. Assessment: 16:08 General: Appears in no apparent distress. Behavior is calm, cooperative. Pain: Denies hb pain. Neuro: Level of Consciousness is awake, alert, obeys commands, Oriented to person, place, time, situation. Cardiovascular: Patient's skin is warm and dry. Respiratory: Respiratory effort is even, unlabored, Respiratory pattern is regular, symmetrical. GI: No signs and/or symptoms were reported involving the gastrointestinal system. : No signs and/or symptoms were reported regarding the genitourinary system. EENT: No signs and/or symptoms were reported regarding the EENT system. Derm: Skin is pink, warm \T\ dry. Musculoskeletal: No signs and/or symptoms reported regarding the musculoskeletal system. 17:39 Reassessment: Patient appears in no apparent distress at this time. Patient and/or hb family updated on plan of care and expected duration. Pain level reassessed. Patient states feeling better. Vital Signs: 14:55 BP 182 / 86; Pulse 66; Resp 17; Temp 98.7; Pulse Ox 100% on R/A; Weight 58.06 kg; ll1 Height 5 ft. 1 in. ; Pain 0/10; 17:30 BP 161 / 80; Pulse 76; Resp 16; Pulse Ox 100% on R/A; hb 17:45 BP 182 / 82; Pulse 74; Resp 15; Pulse Ox 99% ; hb 18:14 BP 160 / 80; Pulse 75; Resp 15; Pulse Ox 100% on R/A; hb 14:55 Body Mass Index 24.19 (58.06 kg, 154.94 cm) ll1 14:55 Pain Scale: Adult ll1 ED Course: 14:46 Patient arrived in ED. ts1 14:54 Ferny Kern PA is PHCP. cp 14:54 Tadeo Hyman DO is Attending Physician. cp 14:58 Triage completed. ll1 14:59 Arm band placed on. ll1 15:05 Tadeo Hyman DO is Attending Physician. cp 15:05 Patient placed in an exam room, on a stretcher. ll1 15:15 Patient has correct armband on for positive identification. hb 15:24 Inserted saline lock: 20 gauge in left antecubital area, using aseptic technique. Blood hb collected. 15:42 Nathalie Aguila, RN is Primary Nurse. hb 16:07 XRAY Chest (1 view) In Process Unspecified. EDMS 16:17 CT Head Brain wo Cont In Process Unspecified. EDMS 16:28 CT Aorta for Dissection In Process Unspecified. EDMS 18:14 No provider procedures requiring assistance completed. IV discontinued, intact, hb bleeding controlled, No redness/swelling at site. 18:15 Provided Education on: Medication. hb Administered Medications: 15:53 Drug: hydrALAZINE IVP 5 mg Route: IVP; Site: left antecubital; ss 17:00 Follow up: Response: No adverse reaction hb 16:19 Drug: Ativan IVP 0.5 mg Route: IVP; Site: left antecubital; hb 17:34 Follow up: Response: No adverse reaction hb 16:47 CANCELLED (Physician Discretion): Lisinopril PO 10 mg PO once cp 17:39 Drug: Lisinopril PO 10 mg Route: PO; hb 18:13 Follow up: Response: No adverse reaction hb 17:55 CANCELLED (Physician Discretion): hydrALAZINE IVP 10 mg IVP once; if systolic pressure cp above 180 Medication: 18:15 VIS not applicable for this client. hb Outcome: 17:41 Discharge ordered by MD. cp 18:14 Discharged to home ambulatory, with significant other. hb 18:14 Condition: stable 18:14 Discharge instructions given to patient, significant other, Instructed on discharge instructions, follow up and referral plans. medication usage, Demonstrated understanding of instructions, follow-up care, medications, Prescriptions given X 3. 18:15 Patient left the ED. hb Signatures: Dispatcher [employer] EDDC Julia Bowen RN RN Ferny Kern PA PA Nathalie Aguila RN RN Owen Bird RN RN ll1 Lottie Olguin PAS PAS ts1 Corrections: (The following items were deleted from the chart) 18:14 17:36 BP 161 / 80; Pulse 76bpm; Resp 16bpm; Pulse Ox 100% RA; hb hb
--- NOTE | 2022-12-29 17:41 | EDPHYS ---
Physician Documentation [facility] Name: Linda Malik Age: 62 yrs Sex: Female : 1960 Arrival Date: 12/29/2022 Time: 14:43 Bed 5 Private MD: ED Physician Tadeo Hyman HPI: 12/29 15:14 This 62 yrs old Female presents to ER via Ambulatory with complaints of Blood Pressure cp Problem, Dizziness, Numbness. 15:14 The patient has elevated blood pressure and discovered this at home, with a home device.cp 15:14 Onset: The symptoms/episode began/occurred Patient is a 62-year-old female with past cp medical history significant for hypertension, hyperlipidemia. Patient presents to the emergency department with concern for elevated blood pressure over the past several weeks that she is been keeping track of at home. Patient reports she had left clavicle surgery done on November 30 and while in the hospital was observed to have elevated blood pressure, she was started on medication isradipine 5 mg to take twice a day to add to her current blood pressure medications. Patient reports she has been having dizziness and noticed that her blood pressure was getting too low so she stopped taking the medication. Historical: - Allergies: 14:58 Sulfa (Sulfonamide Antibiotics); ll1 - PMHx: 14:58 Anxiety; depressive disorder; Hypercholesterolemia; Hypertensive disorder; Lung Cancer; ll1 - PSHx: 14:58 R ankle; R shoulder; right arm; L clavicle FX repair; ll1 - Immunization history:: Client reports receiving the 2nd dose of the Covid vaccine. - Social history:: Smoking status: Patient denies any tobacco usage or history of. ROS: 15:15 Constitutional: Negative for body aches, chills, fever, poor PO intake. cp 15:15 Eyes: Negative for injury, pain, redness, and discharge. cp 15:15 Cardiovascular: Negative for chest pain, edema, palpitations. 15:15 Respiratory: Positive for shortness of breath, at rest. Negative for cough, wheezing. 15:15 Neck: Negative for pain with movement, pain at rest, stiffness. cp 15:15 Abdomen/GI: Negative for abdominal pain, vomiting, diarrhea, constipation, black/tarry stool, rectal bleeding. 15:15 : Negative for urinary symptoms. 15:15 Neuro: Positive for dizziness, numbness, Negative for altered mental status, syncope, weakness. 15:15 All other systems are negative. cp Exam: 15:20 Constitutional: The patient appears in no acute distress, alert, awake, cp non-diaphoretic, non-toxic, well developed, well nourished. 15:20 Head/Face: Normocephalic, atraumatic. cp 15:20 Eyes: Periorbital structures: appear normal, Pupils: equal, round, and reactive to cp light and accomodation, Extraocular movements: intact throughout, Conjunctiva: normal, no exudate, no injection, Sclera: no appreciated abnormality, Lids and lashes: appear normal, bilaterally. 15:20 ENT: External ear(s): are unremarkable, Nose: is normal, Mouth: Lips: moist, Oral mucosa: pink and intact, moist, Posterior pharynx: is normal, airway is patent, no erythema, no exudate. 15:20 Neck: ROM/movement: is normal, is supple, without pain, no range of motions limitations.cp 15:20 Chest/axilla: Inspection: normal. 15:20 Cardiovascular: Rate: normal, Rhythm: regular, Edema: is not appreciated, JVD: is not appreciated. 15:20 Respiratory: the patient does not display signs of respiratory distress, Respirations: normal, Breath sounds: are clear throughout, no decreased breath sounds, no stridor, no wheezing. 15:20 Abdomen/GI: Inspection: abdomen appears normal, Bowel sounds: active, all quadrants, Palpation: abdomen is soft and non-tender, in all quadrants. 15:20 Back: pain, is absent, ROM is normal. 15:20 Skin: cellulitis, is not appreciated, no rash present. 15:20 Neuro: Orientation: to person, place \T\ time. Mentation: is normal, Cerebellar function: is grossly normal, Motor: moves all fours, strength is normal, Sensation: no obvious gross deficits, Gait: is steady. 15:34 ECG was reviewed by the Attending Physician. cp Vital Signs: 14:55 BP 182 / 86; Pulse 66; Resp 17; Temp 98.7; Pulse Ox 100% on R/A; Weight 58.06 kg; ll1 Height 5 ft. 1 in. ; Pain 0/10; 17:30 BP 161 / 80; Pulse 76; Resp 16; Pulse Ox 100% on R/A; hb 17:45 BP 182 / 82; Pulse 74; Resp 15; Pulse Ox 99% ; hb 18:14 BP 160 / 80; Pulse 75; Resp 15; Pulse Ox 100% on R/A; hb 14:55 Body Mass Index 24.19 (58.06 kg, 154.94 cm) ll1 14:55 Pain Scale: Adult ll1 MDM: 15:07 Patient medically screened. cp 17:40 Data reviewed: vital signs, nurses notes, lab test result(s), EKG, radiologic studies, cp CT scan, plain films. 17:40 Consideration of Admission/Observation Escalation of care including cp admission/observation considered. I considered the following discharge prescriptions or medication management in the emergency department Medications were administered in the Emergency Department. See MAR. Independent interpretation of the following test(s) in the Emergency Department EKG: See my EKG interpretation above. Care significantly affected by the following chronic conditions: Hypertension. Counseling: I had a detailed discussion with the patient and/or guardian regarding: the historical points, exam findings, and any diagnostic results supporting the discharge/admit diagnosis, the presence of at least one elevated blood pressure reading (>120/80) during this emergency department visit, lab results, radiology results, the need for outpatient follow up, a family practitioner, to return to the emergency department if symptoms worsen or persist or if there are any questions or concerns that arise at home. Response to treatment: Improved, and as a result, I will discharge patient. 12/29 15:08 Order name: Basic Metabolic Panel; Complete Time: 16:11 12/29 16:43 Interpretation: Normal except: GFR 69. 12/29 15:08 Order name: CBC with Diff; Complete Time: 15:47 12/29 15:47 Interpretation: Normal except: MPV 7.2. 12/29 15:08 Order name: LFT's; Complete Time: 16:11 12/29 16:44 Interpretation: Normal except: AST 13; ALK 123; TP 8.6; GLOB 4.5; A/G 0.9. 12/29 15:08 Order name: Magnesium; Complete Time: 16:11 12/29 15:08 Order name: NT PRO-BNP; Complete Time: 16:11 12/29 16:11 Interpretation: Abnormal: NT PRO-BNP 272. cp 12/29 15:08 Order name: PT-INR; Complete Time: 15:47 cp 12/29 15:47 Interpretation: Reviewed. cp 12/29 15:08 Order name: Troponin HS; Complete Time: 16:11 cp 12/29 16:44 Interpretation: Reviewed. cp 12/29 15:38 Order name: Urinalysis W/Microscopic; Complete Time: 16:30 cp 12/29 16:30 Interpretation: Normal except: UBLD Trace. cp 12/29 15:08 Order name: CT Head Brain wo Cont; Complete Time: 16:30 cp 12/29 16:51 Interpretation: Report reviewed. cp 12/29 15:08 Order name: XRAY Chest (1 view); Complete Time: 16:30 cp 12/29 15:55 Order name: CT Aorta for Dissection; Complete Time: 16:42 cp 12/29 16:43 Interpretation: Report reviewed. cp 12/29 15:08 Order name: EKG; Complete Time: 15:09 cp 12/29 15:08 Order name: Cardiac monitoring; Complete Time: 15:34 cp 12/29 15:08 Order name: EKG - Nurse/Tech; Complete Time: 15:34 cp 12/29 15:08 Order name: IV Saline Lock; Complete Time: 15:34 cp 12/29 15:08 Order name: Labs collected and sent; Complete Time: 15:34 cp 12/29 15:08 Order name: O2 Per Protocol; Complete Time: 15:10 cp 12/29 15:08 Order name: O2 Sat Monitoring; Complete Time: 15:10 cp 12/29 16:58 Order name: Vital Signs; Complete Time: 17:36 cp EC:34 Rate is 63 beats/min. Rhythm is regular. VT interval is normal. QRS interval is normal. cp QT interval is normal. T waves are Inverted in lead aVR. Interpreted by me. Reviewed by me. Administered Medications: 15:53 Drug: hydrALAZINE IVP 5 mg Route: IVP; Site: left antecubital; ss 17:00 Follow up: Response: No adverse reaction hb 16:19 Drug: Ativan IVP 0.5 mg Route: IVP; Site: left antecubital; hb 17:34 Follow up: Response: No adverse reaction hb 16:47 CANCELLED (Physician Discretion): Lisinopril PO 10 mg PO once cp 17:39 Drug: Lisinopril PO 10 mg Route: PO; hb 18:13 Follow up: Response: No adverse reaction hb 17:55 CANCELLED (Physician Discretion): hydrALAZINE IVP 10 mg IVP once; if systolic pressure cp above 180 Disposition: 17:49 Co-signature as Attending Physician, Tadeo VELÁSQUEZ was immediately available on-site ms3 in the Emergency Department for consultation in the care of the patient. Disposition Summary: 12/29/22 17:41 Discharge Ordered Location: Home cp Problem: new cp Symptoms: have improved cp Condition: Stable cp Diagnosis - Hypertensive heart disease without heart failure cp - Anxiety disorder, unspecified cp - Paresthesia of skin - intermittent left leg cp - Constipation cp Followup: cp - With: Private Physician - When: 2 - 3 days - Reason: Recheck today's complaints Discharge Instructions: - Discharge Summary Sheet cp - Constipation, Adult cp - Hypertension, Adult cp - Aspirin and Your Heart cp - Generalized Anxiety Disorder, Adult cp - Form - Blood Pressure Record Sheet cp - How to Take Your Blood Pressure cp Forms: - Medication Reconciliation Form cp - Thank You Letter cp - Antibiotic Education cp - Prescription Opioid Use cp - Patient Portal Instructions cp Prescriptions: - Miralax 17 gram Oral powder in packet - take 1 packet by ORAL route daily As needed; 10 packet; Refills: 0, Product cp Selection Permitted - Ativan 0.5 mg Oral Tablet - take 1 tablet by ORAL route every 8 hours As needed; 10 tablet; Refills: 0, cp Product Selection Permitted - Lisinopril 10 mg Oral Tablet - take 1 tablet by ORAL route once daily; 20 tablet; Refills: 0, Product cp Selection Permitted Signatures: Dispatcher [employer] EDVT Julia Bowen RN RN Ferny Hernandez PA PA cp Nathalie Aguila RN RN hb Lewis, Lynsay, RN RN ll1 Tadeo Hyman DO DO ms3 Corrections: (The following items were deleted from the chart) 15:59 15:47 Chest For PE Angio+CT.RAD.BRZ ordered. EDVT EDMS 16:47 16:46 Lisinopril PO 10 mg PO once ordered. cp cp 17:55 17:55 hydrALAZINE IVP 10 mg IVP once; if systolic pressure above 180 ordered. cp cp
[2022-12-29] MEDS ORDERED: lisinopriL 10 MG TAB ONE (17:47)
[2022-12-29 18:20] VITALS: TEMP 98.7
[2022-12-29 18:25] VITALS: BP 160/80; O2SAT 100
--- NOTE | 2022-12-30 13:10 | EKG ---
Test Date: 2022-12-29 Test Time: 15:28:04 [place]: HB MEASUREMENT RESULTS: Intervals: Rate: 63 MI: 162 QRSD: 98 QT: 436 QTc: 446 [place]: P: 71 MI: 162 QRS: -27 T: 47 INTERPRETIVE STATEMENTS: Normal sinus rhythm Normal ECG No previous ECG available for comparison Electronically Signed On 12-30-22 13:10:06 CDT by Seth Nettles
== END 2022-12-29 18:15 | disposition home or self-care (01) ==
LOC: ER 14:43
DX: I11.9 Hypertensive heart disease without heart failure (principal); F41.9 Anxiety disorder, unspecified; R20.2 Paresthesia of skin; K59.00 Constipation, unspecified; I10 Essential (primary) hypertension; Z88.2 Allergy status to sulfonamides
CPT/HCPCS: 93005; 85025; 81001; 80048; 36415; 83735; 85610; 80076; 84484; 83880; 70450; 71275; 74175; 71045; 96375; 96374; 99284; Q9967; J0360